=== PATIENT | female | born 1960 | race Caucasian/White ===

== ENCOUNTER 2016-12-06 13:42 | Inpatient (IN) ==
[2016-12-06] MEDS ORDERED: *HR* HYDROmorphone (PF) 1 MG/ML SYRINGE IM ONE (15:06)
[2016-12-06] MEDS ORDERED: Ondansetron ODT 4 MG TAB.RAPDIS SL ONE (15:06)
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
[2016-12-06] MEDS ORDERED: *HR* Heparin 5,000 UNIT/ML VIAL IVP ONE ×2 (15:34→15:51)
[2016-12-06] MEDS ORDERED: *HR* Heparin 5,000 UNIT/ML VIAL IVP PRN ×2 (15:34)
[2016-12-06] MEDS ORDERED: Heparin 25,000 UNIT/500 ML D5W 25,000 UNIT/500 ML MLS IVC SCH (15:45)
[2016-12-06 15:55] LABS: Hematocrit 38.6 % (35.3-44.9); Hemoglobin 12.3 g/dL (11.5-15.4); Mean Corpuscular HGB Conc 31.9 g/dL (31.6-35.5); Mean Platelet Volume 10.3 fL (9.4-12.4); Platelet Count 406 K/mcL (140-400); Red Blood Count 4.24 M/mcL (3.82-4.97); Red Cell Distribution Width 14.4 % (11.5-14.5)
[2016-12-06 16:00] LABS: Prothrombin Time 10.7 Seconds (9.4-12.1)
[2016-12-06 16:02] LABS: Activated Partial Thrombo Time 26.8 Seconds (26.0-36.0)
[2016-12-06 16:07] LABS: BUN/Creatinine Ratio 21 (6-26); Blood Urea Nitrogen 18 mg/dL (7-20); Calcium 9.6 mg/dL (8.6-10.8); Carbon Dioxide 26 mEq/L (19-29); Chloride 105 mEq/L (98-109); Glucose 199 mg/dL (70-99); Osmolality,Calculated 291 (280-300); Potassium 4.6 mEq/L (3.5-4.5); Sodium 137 mEq/L (136-145); eGFR For African Americans > 60 (> 60); eGFR For Non-African Americans > 60 (> 60)
--- NOTE | 2016-12-06 16:33 | Event Note ---
Date of Encounter: 12/06/16 Time of Encounter: 15:45 Patient seen in ED. Daughter and friend at bedside with patient. Discussed plan for admission with medical management through the weekend and surgery Friday morning by Dr. Bonilla as scheduled. Dr. Bonilla aware of patient's admission. Brace applied for patient -bracing specialist to adjust fit. Ecchymosis noted to right upper extremity - tender to palpation. Patient neurovascularly intact. Will plan to follow after admission.
[2016-12-06] MEDS ORDERED: Naloxone 0.4 MG/ML INJ IVP PRN (16:44)
[2016-12-06] MEDS ORDERED: Acetaminophen 325 MG TABLET PO PRN (16:44)
[2016-12-06] MEDS ORDERED: Ondansetron 4 MG/2 ML VIAL IVP PRN ×2 (16:44→17:00)
--- NOTE | 2016-12-06 16:53 | Venous Imaging Report ---
UE Venous Duplex Patient Name:Leisa Hendrix Order Number:[id number] Procedure Date:12/06/2016 Date:1960Age:56 yrs Gender:Female Location:[facility] OP Room #: Occasional Babysitter:Raghav Goff Referring MD:Gilson Villegas MD kelp or seagrass gatherer:None Reading MD:Elio Anne MD , FACS Primary Indications:Arm swelling Secondary Indications: Risk Factors Yes/No Hx of DVT Yes Impressions: Right upper extremity: normal superficial and deep exam. Left upper extremity: normal contralateral exam. Recommendations: Critical findings reported to Dr. Villegas in person by Raghav Goff. Findings Venous Duplex Results: Right: The right ulnar vein was not well visualized. Prior Study: No prior study available for comparison. Upper Extremity Venous Duplex Side Vein Compress Spontaneous Flow Augment Right Jugular Normal Yes Phasic Yes Right Subclavian Normal Yes Phasic Yes Right Axillary Normal Yes Phasic Yes Right Brachial Normal Yes Phasic Yes Right Cephalic Normal Yes Phasic Yes Right Basilic Normal Yes Phasic Yes Right Radial Normal Yes Phasic Yes Right Ulnar Normal Yes Phasic Yes Left Subclavian Normal Yes Phasic Yes Updated by Elio Anne MD, FACS on 12/06/2016 4:49:46 PM Elio Anne MD electronically signed on 12/06/2016 4:50:09 PM with status of Final
[2016-12-06] MEDS: Heparin 25,000 UNIT/500 ML D5W 25,000 UNIT/500 ML MLS IVC SCH (17:35)
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
[2016-12-06] MEDS: *HR* Morphine 2 MG/ML SYRINGE IVP PRN ×2 (18:25→22:06)
[2016-12-06] MEDS: Nicotine 21 MG PATCH.TD24 TD SCH (18:57)
[2016-12-06] MEDS: *HR* Heparin 5,000 UNIT/ML VIAL IVP PRN (23:51)
[2016-12-06] MEDS: *HR* HYDROcodone/Acet 5/325 mg TABLET PO PRN (23:54)
[2016-12-07] MEDS: *HR* Morphine 2 MG/ML SYRINGE IVP PRN ×3 (01:56→10:12)
[2016-12-07] MEDS: *HR* HYDROcodone/Acet 5/325 mg TABLET PO PRN ×5 (04:32→20:24)
[2016-12-07 06:08] LABS: Basophils # 0.1 K/mcL (0.0-0.2); Eosinophils # 0.5 K/mcL (0.0-0.6); Eosinophils % 4.4 %; Hematocrit 33.5 % (35.3-44.9); Immature Granulocytes % 0.4 % (0-4); Lymphocytes # 3.6 K/mcL (0.6-4.6); Lymphocytes % 31.8 %; Mean Corpuscular HGB Conc 31.9 g/dL (31.6-35.5); Mean Corpuscular Volume 90.8 fL (83.0-100.0); Mean Platelet Volume 10.8 fL (9.4-12.4); Monocytes # 0.6 K/mcL (0.0-1.3); Monocytes % 5.5 %; Neutrophils # 6.4 K/mcL (1.6-8.9); Platelet Count 345 K/mcL (140-400); Red Blood Count 3.69 M/mcL (3.82-4.97); Red Cell Distribution Width 14.4 % (11.5-14.5); Segmented Neutrophils % 56.9 %
[2016-12-07 06:14] LABS: Hemoglobin 10.7 g/dL (11.5-15.4)
[2016-12-07 06:25] LABS: BUN/Creatinine Ratio 22 (6-26); Blood Urea Nitrogen 16 mg/dL (7-20); Calcium 9.1 mg/dL (8.6-10.8); Carbon Dioxide 25 mEq/L (19-29); Chloride 104 mEq/L (98-109); Glucose 184 mg/dL (70-99); Osmolality,Calculated 284 (280-300); Potassium 4.3 mEq/L (3.5-4.5); Sodium 134 mEq/L (136-145); eGFR For African Americans > 60 (> 60); eGFR For Non-African Americans > 60 (> 60)
[2016-12-07] MEDS: Nicotine 21 MG PATCH.TD24 TD SCH (08:35)
[2016-12-07] MEDS: Aspirin Enteric Coated 81 MG Tablet PO SCH (08:35)
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
[2016-12-07] MEDS: *HR* Heparin 5,000 UNIT/ML VIAL IVP PRN ×2 (13:07→20:23)
[2016-12-07] MEDS: *HR* HYDROmorphone (PF) 1 MG/ML SYRINGE IVP PRN ×3 (14:19→20:38)
[2016-12-07] MEDS: Heparin 25,000 UNIT/500 ML D5W 25,000 UNIT/500 ML MLS IVC SCH (16:20)
[2016-12-08] MEDS: *HR* HYDROmorphone (PF) 1 MG/ML SYRINGE IVP PRN ×8 (00:01→23:00)
[2016-12-08] MEDS: *HR* HYDROcodone/Acet 5/325 mg TABLET PO PRN ×6 (01:34→22:28)
[2016-12-08 02:41] LABS: Prothrombin Time 10.9 Seconds (9.4-12.1)
[2016-12-08 02:45] LABS: Activated Partial Thrombo Time 87.4 Seconds (26.0-36.0)
[2016-12-08 02:47] LABS: Basophils # 0.1 K/mcL (0.0-0.2); Basophils % 0.7 %; Eosinophils # 0.5 K/mcL (0.0-0.6); Eosinophils % 4.3 %; Hematocrit 34.3 % (35.3-44.9); Hemoglobin 10.8 g/dL (11.5-15.4); Immature Granulocytes % 0.4 % (0-4); Lymphocytes # 3.8 K/mcL (0.6-4.6); Lymphocytes % 35.3 %; Mean Corpuscular HGB Conc 31.5 g/dL (31.6-35.5); Mean Corpuscular Hemoglobin 28.3 pg (28.0-33.3); Mean Corpuscular Volume 89.8 fL (83.0-100.0); Mean Platelet Volume 10.5 fL (9.4-12.4); Monocytes # 0.6 K/mcL (0.0-1.3); Monocytes % 5.3 %; Neutrophils # 5.8 K/mcL (1.6-8.9); Platelet Count 362 K/mcL (140-400); Red Blood Count 3.82 M/mcL (3.82-4.97); Red Cell Distribution Width 13.9 % (11.5-14.5)
[2016-12-08 02:48] LABS: BUN/Creatinine Ratio 19 (6-26); Blood Urea Nitrogen 15 mg/dL (7-20); Calcium 9.2 mg/dL (8.6-10.8); Carbon Dioxide 27 mEq/L (19-29); Chloride 100 mEq/L (98-109); Glucose 230 mg/dL (70-99); Osmolality,Calculated 282 (280-300); Potassium 4.3 mEq/L (3.5-4.5); Sodium 132 mEq/L (136-145); eGFR For African Americans > 60 (> 60); eGFR For Non-African Americans > 60 (> 60)
[2016-12-08] MEDS: Nicotine 21 MG PATCH.TD24 TD SCH (09:45)
[2016-12-08] MEDS: Aspirin Enteric Coated 81 MG Tablet PO SCH (09:46)
[2016-12-08] MEDS: Heparin 25,000 UNIT/500 ML D5W 25,000 UNIT/500 ML MLS IVC SCH (12:13)
--- NOTE | 2016-12-08 12:55 | Internal Med Progress Note ---
<Conrado Jimenes - Last Filed: 12/08/16 12:53> Date of Encounter: 12/08/16 Time of Encounter: 11:30 - Assessment and plan (1) CHF (congestive heart failure) Current Visit: Yes Status: Acute Assessment and plan: History of CHF. Cardiology was consulted for preop clearance. Qualifiers: Congestive heart failure type: unspecified congestive heart failure type Congestive heart failure chronicity: chronic Qualified Code(s): I50.9 - Heart failure, unspecified (2) Humerus fracture Current Visit: Yes Status: Acute Assessment and plan: Ortho Evra was aware of patient's condition. -Patient is scheduled to have surgery on Friday. -Patient states that this morning, she had pain in her arm has improved since she was given Dilaudid. -R arm swelling is present. Qualifiers: Encounter type: subsequent encounter Humerus Location: shaft Fracture type: closed Fracture morphology: unspecified fracture morphology Laterality : right Fracture healing: with routine healing Qualified Code(s): S42.301D - Unspecified fracture of shaft of humerus, right arm, subsequent encounter for fracture with routine healing (3) Tobacco abuse Current Visit: Yes Status: Acute Assessment and plan: Patient has been placed on a nicotine patch. (4) DVT (deep venous thrombosis) Current Visit: Yes Status: Acute Assessment and plan: Patient has been placed on heparin drip. Qualifiers: DVT location: lower extremity Affected thrombotic vein of extremity: unspecified vein of extremity Chronicity: chronic Laterality: left Qualified Code(s): I82.502 - Chronic embolism and thrombosis of unspecified deep veins of left lower extremity - Subjective Interval history: She was seen and examined at bedside this morning. Patient states that the only problem that she is having this morning is some pain in her arm. Pain has improved since administration of Dilaudid. Patient denies having any shortness of breath, chest pain, or leg pain. Arm swelling is appreciated on physical exam. Patient has no other complaints at this time. - Constitutional Vitals: Temp Pulse Resp BP Pulse Ox 98.1 F 91 14 136/79 95 12/08/16 12:15 12/08/16 12:15 12/08/16 12:15 12/08/16 12:15 12/08/16 12:15 General appearance: Present: A&O X 3, pleasant, no acute distress, answers questions appropriately - Head Head exam: Present: atraumatic, normocephalic - Neck Neck exam general surgery: Present: supple, trachea midline. Absent: lymphadenopathy - Respiratory Respiratory exam: Present: CTAB. Absent: accessory muscle use, rales, rhonchi, wheezes - Cardiovascular Cardiovascular exam: Present: RRR, +S1, +S2. Absent: diastolic murmur, gallop, rubs, systolic murmur - GI/Abdominal GI/Abdominal exam: Absent: distended - Extremities Exam Extremities exam: Present: warm, radial pulses palpable and symetrical. Absent : calf tenderness, cyanotic, pedal edema - Expanded Upper Extremities Exam Upper Arm exam: Present: deformity (Fracture of right humerus. Swelling present. ), swelling - Skin Skin exam: Present: dry, intact Internal Medicine: Result - Labs CBC & Chem 7: 12/08/16 02:29 12/08/16 02:29 Labs: Short CBC 12/08/16 Range/Units 02:29 WBC 10.7 (4.3-11.1) K/mcL Hgb 10.8 L (11.5-15.4) g/dL Hct 34.3 L (35.3-44.9) % Plt Count 362 (140-400) K/mcL Neutrophils # 5.8 (1.6-8.9) K/mcL BMP 12/08/16 02:29 Sodium 132 L Potassium 4.3 Chloride 100 Carbon Dioxide 27 BUN 15 Creatinine 0.80 Glucose 230 H Calcium 9.2 - ABG Interpretation ABG results: PT/INR, D-dimer PT 10.9 Seconds (9.4-12.1) 12/08/16 02:29 Consult Discharge Plan - Plan Referrals: NO,PCP [Primary Care Provider] - <Bonifacio Caba H - Last Filed: 12/08/16 13:00> Date of Encounter: 12/08/16 - Constitutional Vitals: Temp Pulse Resp BP Pulse Ox 98.1 F 91 14 136/79 95 12/08/16 12:15 12/08/16 12:15 12/08/16 12:15 12/08/16 12:15 12/08/16 12:15 Internal Medicine: Result - Labs CBC & Chem 7: 12/08/16 02:29 12/08/16 02:29 Labs: Short CBC 12/08/16 Range/Units 02:29 WBC 10.7 (4.3-11.1) K/mcL Hgb 10.8 L (11.5-15.4) g/dL Hct 34.3 L (35.3-44.9) % Plt Count 362 (140-400) K/mcL Neutrophils # 5.8 (1.6-8.9) K/mcL BMP 12/08/16 02:29 Sodium 132 L Potassium 4.3 Chloride 100 Carbon Dioxide 27 BUN 15 Creatinine 0.80 Glucose 230 H Calcium 9.2 - ABG Interpretation ABG results: PT/INR, D-dimer PT 10.9 Seconds (9.4-12.1) 12/08/16 02:29 - Attending Attestation Continue Dilaudid. Surgery in the morning I examined this patient and my medical decision-making was reviewed with the Resident Physician. I agree with the documented findings, disposition and treatment plan as described except to the extent set forth below.
--- NOTE | 2016-12-08 13:11 | Event Note ---
Date of Encounter: 12/08/16 Time of Encounter: 13:07 - Cardiology Event Note Cardiology has been consulted for pre-op clearance. Patient was seen and examined by in outpatient setting, note placed on chart. Cardiology has requested records from primary cardiologists office in regarding to recent stress test and recent echocardiogram. No records available fo review. Echo completed here 12/07/16 with LVEF 45-50%, hypokinesis of inferior wall, mild concentric left ventricular hypertrophy, mild diastolic dysfunction, no significant valvular dysfunction, apical inferior, mid inferior, and basal inferior person hypokinetic. All other person with normal motion. SUrgery is planned for tomorrow. DO suspect would be cleared tomorrow, however recommend surgery be scheduled for afternoon to allow for cardiology to call primary cardiologists office to review recent stress test. Cardiology will see patient tomorrow.
[2016-12-09] MEDS: *HR* HYDROmorphone (PF) 1 MG/ML SYRINGE IVP PRN ×10 (02:04→21:23)
[2016-12-09] MEDS: *HR* HYDROcodone/Acet 5/325 mg TABLET PO PRN ×4 (02:26→21:30)
[2016-12-09 05:18] LABS: Basophils # 0.1 K/mcL (0.0-0.2); Basophils % 0.7 %; Eosinophils # 0.5 K/mcL (0.0-0.6); Eosinophils % 4.7 %; Hematocrit 35.4 % (35.3-44.9); Immature Granulocytes % 0.8 % (0-4); Immature Platelets 5.6 % (1.1-6.1); Lymphocytes # 3.2 K/mcL (0.6-4.6); Lymphocytes % 31.9 %; Mean Corpuscular HGB Conc 31.1 g/dL (31.6-35.5); Mean Corpuscular Hemoglobin 28.4 pg (28.0-33.3); Mean Corpuscular Volume 91.5 fL (83.0-100.0); Mean Platelet Volume 10.6 fL (9.4-12.4); Monocytes # 0.6 K/mcL (0.0-1.3); Monocytes % 6.3 %; Neutrophils # 5.5 K/mcL (1.6-8.9); Platelet Count 351 K/mcL (140-400); Red Blood Count 3.87 M/mcL (3.82-4.97); Red Cell Distribution Width 13.9 % (11.5-14.5); Segmented Neutrophils % 55.6 %
[2016-12-09 05:24] LABS: Prothrombin Time 11.2 Seconds (9.4-12.1)
[2016-12-09 05:30] LABS: BUN/Creatinine Ratio 18 (6-26); Blood Urea Nitrogen 14 mg/dL (7-20); Calcium 9.6 mg/dL (8.6-10.8); Carbon Dioxide 25 mEq/L (19-29); Chloride 99 mEq/L (98-109); Glucose 223 mg/dL (70-99); Osmolality,Calculated 281 (280-300); Potassium 4.4 mEq/L (3.5-4.5); Sodium 132 mEq/L (136-145); eGFR For African Americans > 60 (> 60); eGFR For Non-African Americans > 60 (> 60)
[2016-12-09] MEDS: Nicotine 21 MG PATCH.TD24 TD SCH (08:44)
[2016-12-09] MEDS: Aspirin Enteric Coated 81 MG Tablet PO SCH (08:44)
--- NOTE | 2016-12-09 10:10 | Internal Med Progress Note ---
<Conrado Jimenes - Last Filed: 12/09/16 10:23> Date of Encounter: 12/09/16 Time of Encounter: 10:00 - Assessment and plan (1) CHF (congestive heart failure) Current Visit: Yes Status: Acute Assessment and plan: History of CHF. -Cardiology was consulted for preop clearance. -Cardiology will review patient's records. -Patient is scheduled for surgery this morning. Qualifiers: Congestive heart failure type: unspecified congestive heart failure type Congestive heart failure chronicity: chronic Qualified Code(s): I50.9 - Heart failure, unspecified (2) Humerus fracture Current Visit: Yes Status: Acute Assessment and plan: Patient is scheduled to have surgery today. -Patient states that this morning, she had pain in her arm has improved since she was given Dilaudid. -R arm swelling is present. -Cardiology will review patient's condition. Qualifiers: Encounter type: subsequent encounter Humerus Location: shaft Fracture type: closed Fracture morphology: unspecified fracture morphology Laterality : right Fracture healing: with routine healing Qualified Code(s): S42.301D - Unspecified fracture of shaft of humerus, right arm, subsequent encounter for fracture with routine healing (3) Tobacco abuse Current Visit: Yes Status: Acute Assessment and plan: Patient has been placed on a nicotine patch. (4) DVT (deep venous thrombosis) Current Visit: Yes Status: Acute Assessment and plan: Patient has been placed on heparin drip. Qualifiers: DVT location: lower extremity Affected thrombotic vein of extremity: unspecified vein of extremity Chronicity: chronic Laterality: left Qualified Code(s): I82.502 - Chronic embolism and thrombosis of unspecified deep veins of left lower extremity - Subjective Interval history: She was seen and examined at bedside this morning. Patient states that the only problem that she is having this morning is some pain in her arm. Pain has improved since administration of Dilaudid. She is scheduled for surgery this morning, pending clearance from cardiology. Patient denies having any shortness of breath, chest pain, or leg pain. Arm swelling is appreciated on physical exam. Patient has no other complaints at this time. - Constitutional Vitals: Temp Pulse Resp BP Pulse Ox 97.8 F 75 18 142/83 97 12/09/16 06:53 12/09/16 06:53 12/09/16 06:53 12/09/16 06:53 12/09/16 06:53 General appearance: Present: A&O X 3, pleasant, no acute distress, answers questions appropriately - Head Head exam: Present: atraumatic, normocephalic - Neck Neck exam general surgery: Present: supple, trachea midline. Absent: lymphadenopathy - Respiratory Respiratory exam: Present: CTAB. Absent: accessory muscle use, rales, rhonchi, wheezes - Cardiovascular Cardiovascular exam: Present: RRR, +S1, +S2. Absent: diastolic murmur, gallop, rubs, systolic murmur - Extremities Exam Extremities exam: Present: warm, radial pulses palpable and symetrical. Absent : calf tenderness, cyanotic, pedal edema - Expanded Upper Extremities Exam Upper Arm exam: Present: swelling (The patient still has swelling in her right arm. Pain has improved since administration of Dilaudid.) - Skin Skin exam: Present: dry, intact Internal Medicine: Result - Labs CBC & Chem 7: 12/09/16 04:26 12/09/16 04:26 Labs: Short CBC 12/09/16 Range/Units 04:26 WBC 9.9 (4.3-11.1) K/mcL Hgb 11.0 L (11.5-15.4) g/dL Hct 35.4 (35.3-44.9) % Plt Count 351 (140-400) K/mcL Neutrophils # 5.5 (1.6-8.9) K/mcL BMP 12/09/16 04:26 Sodium 132 L Potassium 4.4 Chloride 99 Carbon Dioxide 25 BUN 14 Creatinine 0.78 Glucose 223 H Calcium 9.6 - ABG Interpretation ABG results: PT/INR, D-dimer PT 11.2 Seconds (9.4-12.1) 12/09/16 04:26 Consult Discharge Plan - Plan Referrals: NO,PCP [Primary Care Provider] - <Bonifacio Caba H - Last Filed: 12/09/16 10:27> Date of Encounter: 12/09/16 - Constitutional Vitals: Temp Pulse Resp BP Pulse Ox 97.8 F 75 18 142/83 97 12/09/16 06:53 12/09/16 06:53 12/09/16 06:53 12/09/16 06:53 12/09/16 06:53 Internal Medicine: Result - Labs CBC & Chem 7: 12/09/16 04:26 12/09/16 04:26 Labs: Short CBC 12/09/16 Range/Units 04:26 WBC 9.9 (4.3-11.1) K/mcL Hgb 11.0 L (11.5-15.4) g/dL Hct 35.4 (35.3-44.9) % Plt Count 351 (140-400) K/mcL Neutrophils # 5.5 (1.6-8.9) K/mcL BMP 12/09/16 04:26 Sodium 132 L Potassium 4.4 Chloride 99 Carbon Dioxide 25 BUN 14 Creatinine 0.78 Glucose 223 H Calcium 9.6 - ABG Interpretation ABG results: PT/INR, D-dimer PT 11.2 Seconds (9.4-12.1) 12/09/16 04:26 - Attending Attestation Awaiting records from crisis specialist to obtain clearance for surgery I examined this patient and my medical decision-making was reviewed with the Resident Physician. I agree with the documented findings, disposition and treatment plan as described except to the extent set forth below.
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
[2016-12-09] MEDS: Metoprolol XL (24 HR) Succ 25 MG TAB.ER.24H PO SCH (12:00)
[2016-12-09] MEDS: *HR* Heparin 5,000 UNIT/ML VIAL IVP PRN ×2 (12:01→22:31)
--- NOTE | 2016-12-09 17:30 | Anesthesia Evaluation PreOp ---
Date of Encounter: 12/09/16 Time of Encounter: 17:27 - Past History Planned Operation: ORIF R-Humerus Cardiac History: ND (known RCA STEMI 2014), HTN (maintained on Norvasc, Lisinopril, Metoprolol), Hyperlipidemia (maintained), Other ([facility] 07/2014 - mild CAD, LVEF 40%. ECHO 12/07/2016 - LVEF 45-50% HYpokinesis of Inf Wall, BAsal & apical inferior person. LVH. NO Significant Valvuluar dysfx Nuclear Stress 2016 - Lg Inf. & Apical ND. 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 Chronic Pain maintained on Gabapentin, Cyclobenzaprine, Hydrocodone) Other Medical History: Bleeding (Hx of DVT maintained on Eliquis but "ran out" several months ago and refused Lovenox injections. Admitted 12/07/2016 for anticoagulation.), GERD (maintained on Ranitidine) Anesthesia History: No Prior Anesthetic Complications, Past Anesthesia Alcohol Use: none Drug use: none Medications and Allergies Aspirin [Lo-Dose Aspirin EC] 81 mg PO DAILY 12/01/16 [History] Oxycodone HCl/Acetaminophen [Percocet 7.5-325 mg Tablet] 1 each PO Q6H PRN 12/06 [History] OxyCODONE Immed Rel [Roxicodone 5 MG] 5 - 10 mg PO Q6HR PRN #40 tablet 12/08/16 [Rx] Allergies No Known Allergies Allergy (Verified 12/01/16 06:06) - Meds/Allergy Pre-op Review Medications Reviewed: Yes Allergies Reviewed: Yes Beta Blockers on Current Med List: Yes (Metoprolol) If Beta Blockers taken, Date/Time (Last Dose taken): 12/09/16 @ 1200 Anesthesia Results - Labs 12/09/16 04:26 12/09/16 04:26 Laboratory Tests 12/09/16 12/09/16 12/09/16 04:26 04:26 04:26 WBC 9.9 Hgb 11.0 L Hct 35.4 Plt Count 351 PT 11.2 INR 1.0 APTT Sodium 132 L Potassium 4.4 Chloride 99 Carbon Dioxide 25 BUN 14 Creatinine 0.78 Est GFR (Non-Af Amer) > 60 Glucose 223 H 12/09/16 08:43 WBC Hgb Hct Plt Count PT INR APTT 33.1 Sodium Potassium Chloride Carbon Dioxide BUN Creatinine Est GFR (Non-Af Amer) Glucose - Imaging EKG: image reviewed Anesthesia Exam O2 Sat Weight 59.058 kg O2 Sat by Pulse Oximetry 97 O2 Sat by Pulse Oximetry 96 O2 Sat by Pulse Oximetry 94 O2 Sat by Pulse Oximetry 97 O2 Sat by Pulse Oximetry 97 O2 Sat by Pulse Oximetry 95 O2 Sat by Pulse Oximetry 93 O2 Sat by Pulse Oximetry 96 Vital Signs Temp Pulse Resp BP Pulse Ox 97.8 F 98 18 107/75 97 12/06/16 13:44 12/06/16 13:44 12/06/16 13:44 12/06/16 13:44 12/06/16 13:44 Height: 5'4" Weight: 130# BMI = 22.3 NPO (# of Hours): MNoc - HEENT Pupil (Motor): Pupils equal, EOMI Mallampati: II Teeth: Edentulous Oral Opening: Greater than 3 - STOCKHOLDER LOC: Oriented STOCKHOLDER Motor: Normal LUE, Normal RLE, Normal LLE, Normal Face, Deficit RUE STOCKHOLDER Sensory: Normal: LUE, RLE, LLE, Face, Deficit: RUE - Cardiac Rhythm: Regular Murmur: None - Pulmonary Breath Sounds: bilateral Clear Respiratory Effort: Symmetrical Anesthesia Assess/Plan ASA Score: 3 (COPD, Smoker, CAD, HTN, Chol, Chronic Pain) Modified Sergio Scale for Level of Consciousness: Cooperative, oriented, and tranquil Anesthetic Plan: General Monitoring Plan: Standard Monitors Recovery Plan: PACU Anes Supervising Prov Stmt: Pt seen/evaluated, R&B Discussed, questions answered and consent obtained. Roxana Hernandez MD
[2016-12-09] MEDS ORDERED: Lidocaine -MPF 2% 2 ML VIAL ONE ×3 (17:31→17:38)
[2016-12-09] MEDS ORDERED: *HR* Propofol 200 MG/20 ML VIAL IVP ONE (17:36)
[2016-12-09] MEDS ORDERED: Ondansetron 4 MG/2 ML VIAL ONE ×2 (17:38→18:39)
[2016-12-09] MEDS ORDERED: Dexamethasone 4 MG/ML VIAL ONE ×2 (17:38→18:39)
[2016-12-09] MEDS ORDERED: Lidocaine -MPF 4% 5 ML AMPUL ONE (17:49)
[2016-12-09 18:09] LABS: Heparin anti-factor XA UFH 1.01 IU/mL (0.30-0.70)
[2016-12-09] MEDS ORDERED: *HR* FentaNYL (PF) 100 MCG/2 ML VIAL ONE (18:25)
[2016-12-09] MEDS ORDERED: Acetaminophen IV 1,000 MG/100 ML INFUS..BTL ONE (18:40)
[2016-12-09] MEDS ORDERED: EPHEDrine 50 MG/ML VIAL ONE (18:41)
[2016-12-09] MEDS ORDERED: *HR* HYDROmorphone 2 MG/ML SYRINGE ONE (18:44)
--- NOTE | 2016-12-09 19:20 | Orthopedic Operative Note ---
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 After general anesthesia was administered the operative arm was prepped and draped in the sterile surgical fashion The patient received IV antibiotics prior to skin incision. A standard extended deltopectoral approach was made to the humerus, the incision is made to the skin and subcutaneous tissue. Hemostasis was obtained with Bovie cautery. Using careful blunt dissection the deltopectoral interval was developed, exposing the fracture site. The patient had a long oblique fracture was reduced and held in place with bone holding forceps. 2 super cables were passed under direct vision directly on the bone and secured together preliminary fixation. Using fluoroscopic assistance a Synthes 8 hole proximal humeral locking plate was approximated to the anterior lateral surface was fixed above and below the fracture in compression. With 2, 3.5 cortical screw. It was fixed proximally with 3 3.5 locking screws. Fixation was completed with distal fixation with 3 3.5 locking screws. Position of the hardware as well as fracture reduction found to be acceptable on fluoroscopic exam and direct evaluation. The wound was irrigated the deltopectoral closed with a running #1 PDS suture case tissues irrigated and closed deep with 0 PDS suture superficially with 0 PDS suture was closed with skin jacqui patient was sterile dressing and brace. The patient was extubated, and then transferred to the recovery room in stable condition. Anesthesia: GETA Surgeon: Adalberto Bonilla Condition: stable Disposition: PACU
[2016-12-09] MEDS ORDERED: *HR* HYDROmorphone (PF) 1 MG/ML SYRINGE ONE ×2 (19:30→19:44)
[2016-12-09] MEDS ORDERED: *HR* Promethazine 25 MG/ML VIAL IVP PRN (19:31)
--- NOTE | 2016-12-09 20:35 | Anesthesia Evaluation Post Op ---
Date of Encounter: 12/09/16 Time of Encounter: 20:34 - Vital Signs Vital Signs: Vital Signs/O2 Sat, Most Current Temp Pulse Resp BP Pulse Ox 98.3 F 72 12 122/81 95 12/09/16 20:17 12/09/16 20:17 12/09/16 20:17 12/09/16 20:17 12/09/16 20:17 - Lungs Lungs: Clear Ascult./Percussion - Airway Airway: Non-obstructed - Cardiovascular Regular Rate - Mental Status Mental Status: Alert & Oriented, Answers Appropriately - Pain Pain Scale: 8 (has chronic 7-8/10 pain) Pain Scale used: Numeric (1 - 10) - Nausea Vomiting Nausea Vomiting: Not Present - Hydration Hydration: Tolerates oral liquids, Has not voided - Discharge PostOp Status: Transfer Patient to floor
[2016-12-10] MEDS: *HR* HYDROmorphone (PF) 1 MG/ML SYRINGE IVP PRN ×8 (00:05→23:11)
[2016-12-10] MEDS: *HR* HYDROcodone/Acet 5/325 mg TABLET PO PRN ×5 (01:35→21:01)
[2016-12-10] MEDS: Heparin 25,000 UNIT/500 ML D5W 25,000 UNIT/500 ML MLS IVC SCH (03:08)
[2016-12-10 06:10] LABS: Basophils % 0.3 %; Eosinophils % 0.1 %; Hematocrit 34.5 % (35.3-44.9); Immature Granulocytes % 0.4 % (0-4); Lymphocytes % 7.9 %; Mean Corpuscular HGB Conc 31.9 g/dL (31.6-35.5); Mean Corpuscular Hemoglobin 29.2 pg (28.0-33.3); Mean Corpuscular Volume 91.5 fL (83.0-100.0); Mean Platelet Volume 11.8 fL (9.4-12.4); Monocytes # 0.5 K/mcL (0.0-1.3); Monocytes % 3.9 %; Neutrophils # 10.5 K/mcL (1.6-8.9); Platelet Count 352 K/mcL (140-400); Red Blood Count 3.77 M/mcL (3.82-4.97); Segmented Neutrophils % 87.4 %
[2016-12-10 06:13] LABS: Prothrombin Time 11.1 Seconds (9.4-12.1)
[2016-12-10 06:25] LABS: BUN/Creatinine Ratio 19 (6-26); Blood Urea Nitrogen 21 mg/dL (7-20); Carbon Dioxide 24 mEq/L (19-29); Chloride 96 mEq/L (98-109); Osmolality,Calculated 297 (280-300); Potassium 5.3 mEq/L (3.5-4.5); Sodium 130 mEq/L (136-145); eGFR For African Americans > 60 (> 60); eGFR For Non-African Americans 51 (> 60)
[2016-12-10 06:27] LABS: Glucose 526 mg/dL (70-99)
--- NOTE | 2016-12-10 06:44 | Orthopedics Progress Note ---
Date of Encounter: 12/10/16 Time of Encounter: 06:42 Subjective Interval history: Patient was seen this morning doing well without complaints. Afebrile vital signs stable. Operative extremity: Neurovascularly intact Dressing clean dry and intact Calves nontender Assessment and plan: Continue with postoperative care Stable for discharge Objective Vital signs: Vital Signs Temp Pulse Resp BP Pulse Ox 12/10/16 04:03 98.4 F 79 16 149/66 96 12/09/16 22:21 97.6 F 91 16 118/72 92 12/09/16 22:13 97.8 F 83 16 122/76 89 12/09/16 21:51 84 16 121/77 94 12/09/16 21:36 97.6 F 73 16 106/73 93 12/09/16 21:21 78 16 121/85 96 12/09/16 20:54 97.8 F 80 17 128/81 96 12/09/16 20:51 97.8 F 80 16 128/81 92 12/09/16 20:17 98.3 F 72 12 122/81 95 12/09/16 20:07 98.3 F 76 12 124/90 95 12/09/16 19:57 98.3 F 83 18 120/82 97 12/09/16 19:47 73 18 127/77 96 12/09/16 19:37 75 12 130/82 93 12/09/16 19:27 97.4 F L 85 16 142/81 96 12/09/16 18:12 87 16 118/72 97 12/09/16 17:43 74 18 109/74 97 12/09/16 17:25 73 16 123/76 96 12/09/16 15:43 98.4 F 71 16 112/74 94 12/09/16 10:41 97.6 F 74 18 108/72 97 12/09/16 06:53 97.8 F 75 18 142/83 97 Intake and Output 12/09/16 12/09/16 12/10/16 15:59 23:59 07:59 Intake Total 240 / 240 473 / 473 347 / 347 Output Total 100 / 100 Balance 240 / 240 373 / 373 347 / 347 Intake: IV Fluids 120 / 120 173 / 173 97 / 97 Heparin 25,000 UNIT/500 120 / 120 173 / 173 97 / 97 ML D5W 25,000 unit In 500 ml @ 14 UNIT/KG/HR 16. 384 mls/hr IVC .Q24H DICK Rx#:[id number] Oral 120 / 120 300 / 300 250 / 250 Output: Estimated Blood Loss 100 / 100 Other: Meal Lunch HS SNACK-CRACKERS,CEREAL BAR Percent of Meal Consumed 0% Weight 59.058 kg 59.7 kg Patient Weight 12/10/16 23:59 Weight 59.7 kg - Labs CBC & BMP: 12/10/16 05:02 12/10/16 05:02 Labs: Abnormal lab results WBC 12.0 K/mcL (4.3-11.1) H 12/10/16 05:02 RBC 3.77 M/mcL (3.82-4.97) L 12/10/16 05:02 Hgb 11.0 g/dL (11.5-15.4) L 12/10/16 05:02 Hct 34.5 % (35.3-44.9) L 12/10/16 05:02 Neutrophils # 10.5 K/mcL (1.6-8.9) H 12/10/16 05:02 Heparin Anti-Xa, Unfract 1.01 IU/mL (0.30-0.70) H* 12/09/16 17:02 Sodium 130 mEq/L (136-145) L 12/10/16 05:02 Potassium 5.3 mEq/L (3.5-4.5) H 12/10/16 05:02 Chloride 96 mEq/L (98-109) L 12/10/16 05:02 BUN 21 mg/dL (7-20) H 12/10/16 05:02 Est GFR (Non-Af Amer) 51 (> 60) L 12/10/16 05:02 Glucose 526 mg/dL (70-99) H* 12/10/16 05:02 - VTE Documentation of Mechanical Device: Venous foot pump, device Consult Discharge Plan - Plan Referrals: NO,PCP [Primary Care Provider] -
[2016-12-10] MEDS ORDERED: Insulin Human Regular 8 UNIT in 0.9 % Sodium Chloride 10 ML IV ONE (06:45)
[2016-12-10] MEDS ORDERED: *HR* Dextrose 50 % in Water (Syg) 50 ML SYRINGE IVP PRN (06:46)
[2016-12-10] MEDS ORDERED: D5% in Water 1,000 ML IVC PRN (06:46)
[2016-12-10] MEDS ORDERED: Dextrose Gel 15 GM PO PRN ×2 (06:46)
[2016-12-10 07:11] LABS: Hemoglobin A1C 8.7 %
[2016-12-10] MEDS: Insulin LISPRO 300 UNITS/3 ML VIAL SQ SCH ×3 (08:00→17:22)
[2016-12-10] MEDS: Nicotine 21 MG PATCH.TD24 TD SCH (08:34)
[2016-12-10] MEDS: Metoprolol XL (24 HR) Succ 25 MG TAB.ER.24H PO SCH (08:34)
[2016-12-10] MEDS: Aspirin Enteric Coated 81 MG Tablet PO SCH (08:34)
--- NOTE | 2016-12-10 14:56 | Internal Med Progress Note ---
<Conrado Jimenes - Last Filed: 12/10/16 14:53> Date of Encounter: 12/10/16 Time of Encounter: 11:15 - Assessment and plan (1) Humerus fracture Current Visit: Yes Status: Acute Assessment and plan: Patient had surgery today. -She denies complications. -Says sling is uncomfortable. -Continue pain control. Qualifiers: Encounter type: subsequent encounter Humerus Location: shaft Fracture type: closed Fracture morphology: unspecified fracture morphology Laterality : right Fracture healing: with routine healing Qualified Code(s): S42.301D - Unspecified fracture of shaft of humerus, right arm, subsequent encounter for fracture with routine healing (2) Tobacco abuse Current Visit: Yes Status: Acute Assessment and plan: Patient has been placed on a nicotine patch. (3) DVT (deep venous thrombosis) Current Visit: Yes Status: Acute Assessment and plan: Patient has been placed on heparin drip. -Will resume Eliquis pending approval from ortho. 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 Qualifiers: Congestive heart failure type: unspecified congestive heart failure type Congestive heart failure chronicity: chronic Qualified Code(s): I50.9 - Heart failure, unspecified (5) Hyperglycemia Current Visit: Yes Status: Acute Assessment and plan: Patient had elevated blood sugar. -Glucose this morning was 526. -Never diagnosed as diabetic. -Follow up with PCP. - Subjective Interval history: She was seen and examined at bedside this morning. Patient states that the only problem that she is having this morning is some pain in her arm. Her surgery went well. She denies any complications, but does say that her arm sling is uncomfortable. Patient denies having any shortness of breath, chest pain, or leg pain. Arm swelling is appreciated on physical exam. Patient has no other complaints at this time. - Constitutional Vitals: Temp Pulse Resp BP Pulse Ox 97.9 F 82 17 136/80 95 12/10/16 11:14 12/10/16 11:14 12/10/16 11:14 12/10/16 11:14 12/10/16 11:14 General appearance: Present: A&O X 3, pleasant, no acute distress, answers questions appropriately - Head Head exam: Present: atraumatic, normocephalic - Neck Neck exam general surgery: Present: supple, trachea midline. Absent: lymphadenopathy - Respiratory Respiratory exam: Present: CTAB. Absent: accessory muscle use, rales, rhonchi, wheezes - Cardiovascular Cardiovascular exam: Present: RRR, +S1, +S2. Absent: diastolic murmur, gallop, rubs, systolic murmur - Skin Skin exam: Present: dry, intact Internal Medicine: Result - Labs CBC & Chem 7: 12/10/16 05:02 12/10/16 08:55 Labs: Short CBC 12/10/16 Range/Units 05:02 WBC 12.0 H (4.3-11.1) K/mcL Hgb 11.0 L (11.5-15.4) g/dL Hct 34.5 L (35.3-44.9) % Plt Count 352 (140-400) K/mcL Neutrophils # 10.5 H (1.6-8.9) K/mcL BMP 12/10/16 12/10/16 05:02 08:55 Sodium 130 L Potassium 5.3 H Chloride 96 L Carbon Dioxide 24 BUN 21 H Creatinine 1.11 Glucose 526 H* 413 H Calcium 10.0 - ABG Interpretation ABG results: PT/INR, D-dimer PT 11.1 Seconds (9.4-12.1) 12/10/16 05:02 - Impressions Impressions Fluoroscopy 12/09/16 18:35 IMPRESSION: Intraprocedural fluoroscopic spot images as above. See separate procedure report for more information. D/ / 12/09/2016 19:51:24 León Jamison MD / ladi Interpreting Provider: León Jamison MD Humerus X-Ray 12/09/16 18:35 IMPRESSION: Intraprocedural fluoroscopic spot images as above. See separate procedure report for more information. D/ / 12/09/2016 19:51:24 León Jamison MD / ladi Interpreting Provider: León Jamison MD - VTE Documentation of Mechanical Device: Venous foot pump, device Consult Discharge Plan - Plan Referrals: NO,PCP [Primary Care Provider] - <Rashaad Lewis - Last Filed: 12/10/16 18:41> Date of Encounter: 12/10/16 - Assessment and plan (1) Femoral popliteal artery thrombus Current Visit: Yes Status: Resolved Assessment and plan: Prior hx of arterial thrombus. Was to remain on anticoagulation. On IV heparin. Start PO med tomorrow. (2) Tobacco abuse Current Visit: Yes Status: Chronic (3) Diabetes mellitus Current Visit: Yes Status: Chronic Qualifiers: Diabetes mellitus type: type 2 Diabetes mellitus complication status: with circulatory complication Diabetes mellitus complication detail: with peripheral angiopathy without gangrene Diabetes mellitus service person insulin use : without senior care use Qualified Code(s): E11.51 - Type 2 diabetes mellitus with diabetic peripheral angiopathy without gangrene (4) CAD (coronary artery disease) Current Visit: Yes Status: Chronic Qualifiers: Coronary Disease-Associated Artery/Lesion type: [place] artery [place] vs. transplanted heart: [place] heart Associated angina: without angina Qualified Code(s): I25.10 - Atherosclerotic heart disease of [place] coronary artery without angina pectoris (5) Humerus fracture Current Visit: Yes Status: Acute Qualifiers: Encounter type: subsequent encounter Humerus Location: shaft Fracture type: closed Fracture morphology: unspecified fracture morphology Laterality : right Fracture healing: with routine healing Qualified Code(s): S42.301D - Unspecified fracture of shaft of humerus, right arm, subsequent encounter for fracture with routine healing - Constitutional Vitals: Temp Pulse Resp BP Pulse Ox 98.4 F 79 19 127/76 96 12/10/16 16:09 12/10/16 16:09 12/10/16 16:09 12/10/16 16:09 12/10/16 16:09 Internal Medicine: Result - Labs CBC & Chem 7: 12/10/16 05:02 12/10/16 08:55 Labs: Short CBC 12/10/16 Range/Units 05:02 WBC 12.0 H (4.3-11.1) K/mcL Hgb 11.0 L (11.5-15.4) g/dL Hct 34.5 L (35.3-44.9) % Plt Count 352 (140-400) K/mcL Neutrophils # 10.5 H (1.6-8.9) K/mcL BMP 12/10/16 12/10/16 05:02 08:55 Sodium 130 L Potassium 5.3 H Chloride 96 L Carbon Dioxide 24 BUN 21 H Creatinine 1.11 Glucose 526 H* 413 H Calcium 10.0 - ABG Interpretation ABG results: PT/INR, D-dimer PT 11.1 Seconds (9.4-12.1) 12/10/16 05:02 - Impressions Impressions Fluoroscopy 12/09/16 18:35 IMPRESSION: Intraprocedural fluoroscopic spot images as above. See separate procedure report for more information. D/ / 12/09/2016 19:51:24 León Jamison MD / ladi Interpreting Provider: León Jamison MD Humerus X-Ray 12/09/16 18:35 IMPRESSION: Intraprocedural fluoroscopic spot images as above. See separate procedure report for more information. D/ / 12/09/2016 19:51:24 León Jamison MD / ladi Interpreting Provider: León Jamison MD - Attending Attestation I examined this patient and my medical decision-making was reviewed with the Resident Physician on 12/10/16. I agree with the documented findings, disposition and treatment plan as described except to the extent set forth below. Ms. Hendrix is currently admitted for acute humeral fracture and anticoagulation due to history of arterial thrombus. She is moderate to high risk due to potential for worsening vascular complications. Ms. Hendrix is complaining of pain in arm. Relates history of thrombus in R leg and "almost lost leg." Says her Eliquis had 11 refills but she didn't refill it due to cost. Concerned about her meds. Exam Alert. comfortable Mucus membranes moist Heart reg No wheeze Abd soft I/P 1. Hx Arterial thrombus - on heparin. SW consult for med assist in AM 2. Fx R humerus - pain control 3. PAD Further diagnoses and plan as above.
[2016-12-10] MEDS ORDERED: Insulin LISPRO 300 UNITS/3 ML VIAL SQ SCH (21:00)
[2016-12-11] MEDS: *HR* HYDROcodone/Acet 5/325 mg TABLET PO PRN ×5 (01:08→19:49)
[2016-12-11] MEDS: Heparin 25,000 UNIT/500 ML D5W 25,000 UNIT/500 ML MLS IVC SCH ×2 (01:09→20:01)
[2016-12-11] MEDS: *HR* HYDROmorphone (PF) 1 MG/ML SYRINGE IVP PRN ×7 (03:03→21:20)
[2016-12-11] MEDS: *HR* Heparin 5,000 UNIT/ML VIAL IVP PRN (06:53)
[2016-12-11] MEDS: Metoprolol XL (24 HR) Succ 25 MG TAB.ER.24H PO SCH (08:00)
[2016-12-11] MEDS: Aspirin Enteric Coated 81 MG Tablet PO SCH (08:00)
[2016-12-11] MEDS: Insulin LISPRO 300 UNITS/3 ML VIAL SQ SCH ×3 (08:00→17:11)
[2016-12-11] MEDS: Nicotine 21 MG PATCH.TD24 TD SCH (08:00)
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
--- NOTE | 2016-12-11 19:31 | Internal Med Progress Note ---
Date of Encounter: 12/11/16 Time of Encounter: 08:30 - Assessment and plan (1) Femoral popliteal artery thrombus Current Visit: Yes Status: Resolved Assessment and plan: Prior hx of arterial thrombus. Will start PO Xarelto at discharge. (2) Tobacco abuse Current Visit: Yes Status: Chronic Assessment and plan: Patient has been placed on a nicotine patch. (3) Diabetes mellitus Current Visit: Yes Status: Chronic Assessment and plan: To start PO med at discharge. Currently on sliding scale. Qualifiers: Diabetes mellitus type: type 2 Diabetes mellitus complication status: with circulatory complication Diabetes mellitus complication detail: with peripheral angiopathy without gangrene Diabetes mellitus long-term insulin use : without terminal clerk use Qualified Code(s): E11.51 - Type 2 diabetes mellitus with diabetic peripheral angiopathy without gangrene (4) CAD (coronary artery disease) Current Visit: Yes Status: Chronic Assessment and plan: Chronic issues. Qualifiers: Coronary Disease-Associated Artery/Lesion type: [place] artery [place] vs. transplanted heart: [place] heart Associated angina: without angina Qualified Code(s): I25.10 - Atherosclerotic heart disease of [place] coronary artery without angina pectoris (5) Humerus fracture Current Visit: Yes Status: Acute Assessment and plan: Pt has significant pain and swelling in arm. Ortho service contacted for re evaluation. Neurovascular intact at this time. Plan for rehab at discharge. Qualifiers: Encounter type: subsequent encounter Humerus Location: shaft Fracture type: closed Fracture morphology: unspecified fracture morphology Laterality : right Fracture healing: with routine healing Qualified Code(s): S42.301D - Unspecified fracture of shaft of humerus, right arm, subsequent encounter for fracture with routine healing - Subjective Interval history: Ms. Hendrix is currently admitted for fracture R humerus and need for IV anticoagulation due to history of arterial thrombus. She is moderate to high risk due to continued issues with R arm and need for IV heparin. Ms. Hendrix is having a lot of pain in her arm. She is using pain meds but feels it is more swollen today. No fever or chills. No GI issues. Denies parasthesias of R hand. - Constitutional Vitals: Temp Pulse Resp BP Pulse Ox 98.1 F 102 18 131/81 97 12/11/16 16:05 12/11/16 16:05 12/11/16 16:05 12/11/16 16:05 12/11/16 16:05 General appearance: Present: A&O X 3, pleasant, answers questions appropriately - Head Head exam: Present: normocephalic - Eye Eye exam: Present: EOMI, conjuntiva pink - ENT ENT exam: Present: mucous membranes moist - Respiratory Respiratory exam: Present: CTAB. Absent: rhonchi, wheezes - Cardiovascular Cardiovascular exam: Present: RRR. Absent: systolic murmur - GI/Abdominal GI/Abdominal exam: Present: soft. Absent: tenderness - Extremities Exam Additional comments: RUE with edema of upper portion. Good radial pulse felt. Hand cool but has good cap refill. Sensation intact of R arm. - Neurological Exam Neurological exam: Present: alert, oriented X3, no focal deficits - Skin Skin exam: Present: warm. Absent: rash Internal Medicine: Result - Labs CBC & Chem 7: 12/10/16 05:02 12/10/16 08:55 - ABG Interpretation ABG results: PT/INR, D-dimer PT 11.1 Seconds (9.4-12.1) 12/10/16 05:02 - VTE Documentation of Mechanical Device: Venous foot pump, device Consult Discharge Plan - Plan Additional Instructions: Follow-up with PCP for hyperglycemia. Referrals: Maria Ines Peña CNP [Advanced Practice Nurse] - NO,PCP [Primary Care Provider] -
[2016-12-11] MEDS ORDERED: Insulin LISPRO 300 UNITS/3 ML VIAL SQ SCH (21:00)
[2016-12-12] MEDS: *HR* HYDROmorphone (PF) 1 MG/ML SYRINGE IVP PRN ×6 (01:15→17:35)
[2016-12-12] MEDS: *HR* HYDROcodone/Acet 5/325 mg TABLET PO PRN ×2 (03:05→08:08)
[2016-12-12] MEDS: Nicotine 21 MG PATCH.TD24 TD SCH (08:07)
[2016-12-12] MEDS: Insulin LISPRO 300 UNITS/3 ML VIAL SQ SCH ×3 (08:07→22:04)
[2016-12-12] MEDS: Aspirin Enteric Coated 81 MG Tablet PO SCH (08:08)
[2016-12-12] MEDS: Metoprolol XL (24 HR) Succ 25 MG TAB.ER.24H PO SCH (08:08)
--- NOTE | 2016-12-12 08:40 | Venous Imaging Report ---
UE Venous Duplex Patient Name:Leisa Hendrix Order Number:[id number] Procedure Date:12/11/2016 Date:1960Age:56 yrs Gender:Female Location:[facility] Room #: 2A62 Patient Assessment Coordinator:Faviola Salcido RVT, CS Referring MD:Adalberto Bonilla MD help desk analyst:None Reading MD:Elio Anne MD , FACS Primary Indications:swelling Secondary Indications: Risk Factors Yes/No Anticoagulants Yes Impressions: Right upper extremity: normal superficial and deep exam but this is a limited exam. Left upper extremity: normal contralateral exam. Findings Venous Duplex Results: Right: Venous imaging of the upper extremity reveals full patency and normal vessel compressibility of the right jugular, right subclavian, right brachial, right cephalic, right basilic, right radial and right ulnar. Doppler signals in the evaluated veins were normal. The right subclavian, right brachial, right cephalic and right basilic veins were not well visualized. The right axillary vein was not assessed. Left: Venous imaging of the upper extremity reveals full patency and normal vessel compressibility of the left subclavian. Doppler signals in the evaluated veins were normal. Upper Extremity Venous Duplex Side Vein Compress Spontaneous Flow Augment Right Jugular Normal Yes Phasic Yes Right Subclavian Normal Yes Phasic Yes Right Axillary Right Brachial Normal Yes Phasic Yes Right Cephalic Normal Yes Phasic Yes Right Basilic Normal Yes Phasic Yes Right Radial Normal Yes Phasic Yes Right Ulnar Normal Yes Phasic Yes Left Subclavian Normal Yes Phasic Yes Updated by Elio Anne MD, FACS on 12/12/2016 8:31:30 AM Elio Anne MD electronically signed on 12/12/2016 8:31:45 AM with status of Final
[2016-12-12] MEDS ORDERED: *HR* OxyCODONE Immed Rel 5 MG TABLET PO PRN (12:12)
[2016-12-12] MEDS ORDERED: *HR* OxyCODONE/APAP 7.5/325 TABLET PO PRN (12:12)
--- NOTE | 2016-12-12 12:47 | Physician Discharge Referral ---
ExtendedCare Referral Info Provider in Charge after Transfer: PCP Institutional Level of Care: Skilled - Diagnosis (1) Femoral popliteal artery thrombus Priority: Secondary Status: Resolved (2) Tobacco abuse Priority: Secondary Status: Chronic (3) Diabetes mellitus Priority: Secondary Status: Chronic (4) CAD (coronary artery disease) Priority: Secondary Status: Chronic (5) Humerus fracture Priority: Primary Status: Acute Expected Duration of Placement: Less than 30 days Prognosis: Good Aware of Diagnosis: Patient Aware of Prognosis: Patient - Transfer Medications Prescriptions: OxyCODONE/APAP 7.5/325 [Percocet 7.5/325 MG] 1 each PO Q6HR PRN #10 tab PRN Reason: Moderate to Severe Pain (4-10) OxyCODONE Immed Rel [Roxicodone 5 MG] 5 mg PO Q3H PRN #10 tab PRN Reason: Pain Home Medications: Aspirin [Lo-Dose Aspirin EC] 81 mg PO DAILY 12/01/16 [History] Acetaminophen [Tylenol] 650 mg PO Q6HR PRN tab 12/12/16 [Rx] Atorvastatin [Lipitor] 20 mg PO HS tab 12/12/16 [Rx] Metoprolol XL (24 HR) Succ [Toprol Xl] 25 mg PO DAILY 12/12/16 [Rx] Nicotine Patch [Nicoderm] 21 mg TD DAILY 12/12/16 [Rx] OxyCODONE Immed Rel [Roxicodone 5 MG] 5 mg PO Q3H PRN #10 tab 12/12/16 [Rx] OxyCODONE/APAP 7.5/325 [Percocet 7.5/325 MG] 1 each PO Q6HR PRN #10 tab [Rx] Rivaroxaban [Xarelto] 20 mg PO DAILY@1700 tab 12/12/16 [Rx] Allergies/Adverse Reactions: Allergies No Known Allergies Allergy (Verified 12/01/16 06:06) - Respiratory Orders None Smoking Cessation: Smoking cessation has been advised. For more information, call the [place] Tobacco Quit Line at 1-027-SFYR-NOW. - Ancillary Orders May use pressure relief devices daily prn, May consult with Dentist, Gill Net Stringer, Adjudication Specialist PRN - Advance Directives Code Status: Full Code - History and Physical History/Physical reviewed & approved w/add comments: Pt now s/p ORIF on R humerus. - Mobility Orders Ambulate - Rehabiliation Orders Rehab Potential: Good Rehab Orders: Evaluation for Physical Therapy, Evaluation for Occupational Therapy - Treatments Skin tear care topically daily PRN per policy, May check for fecal impaction rectally daily PRN, Fleet enema rectally every other day PRN cleansing purposes - Diet Orders No Concentrated Sweets, Cardiac CERTIFICATION: I certify that the transfer of the above named patient to an Extended Care Facility is necessary for the continuing treatment of the diagnosis listed. The above information is true and accurate reflection of patient's current condition. Confidential - Redisclosure prohibited without a patient's written consent.
[2016-12-12] MEDS ORDERED: *HR* Rivaroxaban 10 MG TABLET PO SCH (13:00)
--- NOTE | 2016-12-12 15:15 | Internal Med Progress Note ---
<Conrado Jimenes - Last Filed: 12/12/16 15:12> Date of Encounter: 12/12/16 Time of Encounter: 10:20 - Assessment and plan (1) Humerus fracture Current Visit: Yes Status: Acute Assessment and plan: Pt has significant pain and swelling in arm. Ortho service contacted for re evaluation. Neurovascular intact at this time. Significant swelling and redness, as well as pitting edema. Possible compartment syndrome. Ortho is on board. Plan for rehab at discharge. Qualifiers: Encounter type: subsequent encounter Humerus Location: shaft Fracture type: closed Fracture morphology: unspecified fracture morphology Laterality : right Fracture healing: with routine healing Qualified Code(s): S42.301D - Unspecified fracture of shaft of humerus, right arm, subsequent encounter for fracture with routine healing (2) Tobacco abuse Current Visit: Yes Status: Chronic Assessment and plan: Patient has been placed on a nicotine patch. (3) DVT (deep venous thrombosis) Current Visit: Yes Status: Acute Assessment and plan: Patient has been placed on heparin drip. -Will place on Xarelto upon discharge. 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 Qualifiers: Congestive heart failure type: unspecified congestive heart failure type Congestive heart failure chronicity: chronic Qualified Code(s): I50.9 - Heart failure, unspecified (5) Hyperglycemia Current Visit: Yes Status: Acute Assessment and plan: Patient had elevated blood sugar. -Glucose this morning was 413. -Never diagnosed as diabetic. -Follow up with PCP. - Subjective Interval history: She was seen and examined at bedside this morning. Patient states that the only problem that she is having this morning is some pain in her arm. On this morning appeared swollen, possible compartment syndrome. Area is red and hand is much colder today than it was yesterday. Orthopedics is on board. Patient denies having any shortness of breath, chest pain, or leg pain. Pitting edema is appreciated on physical exam. - Constitutional Vitals: Temp Pulse Resp BP Pulse Ox 98.4 F 96 18 152/87 100 12/12/16 12:09 12/12/16 12:09 12/12/16 12:09 12/12/16 12:09 12/12/16 12:09 General appearance: Present: A&O X 3, pleasant, answers questions appropriately - Head Head exam: Present: atraumatic, normocephalic - Neck Neck exam general surgery: Present: supple, trachea midline. Absent: lymphadenopathy - Respiratory Respiratory exam: Present: CTAB. Absent: accessory muscle use, rales, rhonchi, wheezes - Cardiovascular Cardiovascular exam: Present: RRR, +S1, +S2. Absent: diastolic murmur, gallop, rubs, systolic murmur - Extremities Exam Extremities exam: Absent: calf tenderness, cyanotic - Expanded Upper Extremities Exam Upper Arm exam: Present: erythema, swelling, tenderness (Significant swelling in the right upper arm, possibly suggestive of compartment syndrome. ) - Skin Skin exam: Present: dry, intact Internal Medicine: Result - Labs CBC & Chem 7: 12/10/16 05:02 12/10/16 08:55 - ABG Interpretation ABG results: PT/INR, D-dimer PT 11.1 Seconds (9.4-12.1) 12/10/16 05:02 - VTE Documentation of Mechanical Device: Venous foot pump, device Consult Discharge Plan - Plan Additional Instructions: Follow-up with PCP for hyperglycemia. Referrals: Maria Ines Peña NAPPER TENDER [Advanced Practice Nurse] - (patient is going to [facility]) NO,PCP [Primary Care Provider] - Prescriptions: OxyCODONE/APAP 7.5/325 [Percocet 7.5/325 MG] 1 each PO Q6HR PRN #10 tab PRN Reason: Moderate to Severe Pain (4-10) OxyCODONE Immed Rel [Roxicodone 5 MG] 5 mg PO Q3H PRN #10 tab PRN Reason: Pain <Rashaad Lewis - Last Filed: 12/12/16 18:39> Date of Encounter: 12/12/16 - Assessment and plan (1) Femoral popliteal artery thrombus Current Visit: Yes Status: Resolved (2) Tobacco abuse Current Visit: Yes Status: Chronic (3) Diabetes mellitus Current Visit: Yes Status: Chronic Qualifiers: Diabetes mellitus type: type 2 Diabetes mellitus complication status: with circulatory complication Diabetes mellitus complication detail: with peripheral angiopathy without gangrene Diabetes mellitus nursing home insulin use : without laborer plumbing use Qualified Code(s): E11.51 - Type 2 diabetes mellitus with diabetic peripheral angiopathy without gangrene (4) CAD (coronary artery disease) Current Visit: Yes Status: Chronic Qualifiers: Coronary Disease-Associated Artery/Lesion type: [place] artery [place] vs. transplanted heart: [place] heart Associated angina: without angina Qualified Code(s): I25.10 - Atherosclerotic heart disease of [place] coronary artery without angina pectoris (5) Humerus fracture Current Visit: Yes Status: Acute Qualifiers: Encounter type: subsequent encounter Humerus Location: shaft Fracture type: closed Fracture morphology: unspecified fracture morphology Laterality : right Fracture healing: with routine healing Qualified Code(s): S42.301D - Unspecified fracture of shaft of humerus, right arm, subsequent encounter for fracture with routine healing - Constitutional Vitals: Temp Pulse Resp BP Pulse Ox 98.7 F 97 14 131/64 98 12/12/16 18:29 12/12/16 18:29 12/12/16 18:29 12/12/16 18:29 12/12/16 18:29 Internal Medicine: Result - Labs CBC & Chem 7: 12/12/16 18:09 12/10/16 08:55 Labs: Short CBC 12/12/16 Range/Units 18:09 Hgb 7.3 L D (11.5-15.4) g/dL Hct 23.2 L (35.3-44.9) % - ABG Interpretation ABG results: PT/INR, D-dimer PT 11.1 Seconds (9.4-12.1) 12/10/16 05:02 - Impressions Impressions Humerus X-Ray 12/12/16 16:12 IMPRESSION: ORIF humeral fracture without complication. D/ / 12/12/2016 17:23:33 Adolfo Thomas MD / nacho Interpreting Provider: Adolfo Thomsa MD - Attending Attestation I examined this patient and my medical decision-making was reviewed with the Resident Physician on 12/12/16. I agree with the documented findings, disposition and treatment plan as described except to the extent set forth below. Ms. Hendrix is currently admitted due to hx of arterial thrombosus and need for anticoagulation and fracture of R humerus. She is moderate to high risk due to potential for worsening clinical status. Ms. Hendrix continues to have upper extremity swelling and pain. No fever or chills. No GI symptoms. Has been accepted for SNF at discharge. Transitioning to PO med that is not as expensive today. Exam Alert. Mod distress due to pain Mucus membranes moist RUE with edema Pulse palpable Heart reg No wheeze I/P 1. RUE swelling - per ortho today. 2. Hx of arterial thrombus in 08/02 - was to be on laborer plumbing anticoagulation. 3. DM Further diagnoses and plan as above.
--- NOTE | 2016-12-12 15:25 | Event Note ---
Date of Encounter: 12/12/16 Time of Encounter: 15:13 Patient seen at request of hospitalist secondary to hand swelling concern for compartment syndrome. On exam patient is writhing in pain stating she feels her arm is going to explode. She states she thinks her brace needs loosened secondary to "squeezing" feeling. Admits to decreased sensation to right hand to right elbow. Admits to significant and escalating pain over the past appx 8 hours. On exam patient's brace is only loosly applied. RUE is very swollen with 3+ pitting edema to hand up to right shoulder nearly to chest wall. Patient exquisitely tender to even light palpation of the RUE. Radial pulse present Brachial pulse difficult to palpate. Right hand pale and cool. Motion intact to right fingers and wrist. Discussed with Hospitalist team - patient had been continued on Heparin post operatively instead of Eliquis and had a dose of Xarelto appx 3 hours ago. Patient seen by Dr. Bonilla concurrently. Will take to surgery now for irrigation and debridement with concern for compartment syndrome possible fasciotomy. Patient written consent obtained at bedside and all questions answered to patient's satisfaction prior to transport to OR.
[2016-12-12] MEDS ORDERED: Famotidine 20 MG/2 ML VIAL ONE (15:45)
[2016-12-12] MEDS ORDERED: Metoclopramide 10 MG/2 ML VIAL ONE (15:45)
--- NOTE | 2016-12-12 15:51 | Anesthesia Evaluation PreOp ---
Date of Encounter: 12/12/16 Time of Encounter: 15:46 - Past History Planned Operation: RUE Fasciotomy/I&D Cardiac History: Denies any Significant Hx, AK (known RCA STEMI 2014), HTN ( maintained on NOrvasc, Lisionpril, Metoprolol), Other (LHC 07/2014 - mild CAD, LVEF 40%, ECHO 12/07/2016 - LVEF 45-5-%. Hypokinesis of INf, basal & apical inferior person. LVH. 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 Chronic Pain maintained on Gabapentin, Cyclobenzaprine, Hydrocodone) Other Medical History: Bleeding (Hx of DVT maitnained on Eliquis but "ran out" several onths ago and refused Lovenox infjections. Admitted 12/07/2016 for anticoagulation prior to Surgery; now with compartment syndrome requiring I&D/ FAsciotomy on 12/12/2016) Alcohol Use: none Drug use: none Medications and Allergies Aspirin [Lo-Dose Aspirin EC] 81 mg PO DAILY 12/01/16 [History] Acetaminophen [Tylenol] 650 mg PO Q6HR PRN tab 12/12/16 [Rx] Atorvastatin [Lipitor] 20 mg PO HS tab 12/12/16 [Rx] Metoprolol XL (24 HR) Succ [Toprol Xl] 25 mg PO DAILY 12/12/16 [Rx] Nicotine Patch [Nicoderm] 21 mg TD DAILY 12/12/16 [Rx] OxyCODONE Immed Rel [Roxicodone 5 MG] 5 mg PO Q3H PRN #10 tab 12/12/16 [Rx] OxyCODONE/APAP 7.5/325 [Percocet 7.5/325 MG] 1 each PO Q6HR PRN #10 tab [Rx] Rivaroxaban [Xarelto] 20 mg PO DAILY@1700 tab 12/12/16 [Rx] Allergies No Known Allergies Allergy (Verified 12/01/16 06:06) - Meds/Allergy Pre-op Review Medications Reviewed: Yes Allergies Reviewed: Yes Beta Blockers on Current Med List: Yes (Metoprolol) If Beta Blockers taken, Date/Time (Last Dose taken): 12/12/2016 @0808 Anesthesia Results - Labs 12/10/16 05:02 12/10/16 08:55 Laboratory Tests 12/10/16 12/10/16 12/12/16 05:02 05:02 11:48 Sodium 130 L Potassium 5.3 H Chloride 96 L Carbon Dioxide 24 BUN 21 H Creatinine 1.11 Est GFR (Non-Af Amer) 51 L POC Glucose 312 H Est Mean Plasma Glucose 203 Hemoglobin A1c 8.7 H - Imaging EKG: image reviewed Anesthesia Exam Vital Signs Temp Pulse Resp BP Pulse Ox 12/12/16 12:09 98.4 F 96 18 152/87 100 12/12/16 08:37 97.9 F 87 19 140/84 97 12/11/16 19:47 98.2 F 110 17 141/89 96 12/11/16 16:05 98.1 F 102 18 131/81 97 Intake and Output 12/12/16 12/12/16 12/12/16 07:59 15:59 23:59 Intake Total 120 / 120 Balance 120 / 120 Intake: Oral 120 / 120 Other: # Urine Diapers 1 Blood Glucose* 312 - HEENT Pupil (Motor): Pupils equal, EOMI Mallampati: II Teeth: Edentulous Oral Opening: Greater than 3 - SENIOR HRIS ANALYST LOC: Oriented SENIOR HRIS ANALYST Motor: Normal LUE, Normal RLE, Normal LLE, Normal Face, Deficit RUE SENIOR HRIS ANALYST Sensory: Normal: LUE, RLE, LLE, Face, Deficit: RUE - Cardiac Rhythm: Regular Murmur: None JVD: No - Pulmonary Breath Sounds: bilateral Clear Respiratory Effort: Symmetrical Anesthesia Assess/Plan ASA Score: 3 (HTN, Poorly controlled DM, Smoker, Hx of DVT) Modified Sergio Scale for Level of Consciousness: Cooperative, oriented, and tranquil Anesthetic Plan: General Monitoring Plan: Standard Monitors Recovery Plan: PACU Anes Supervising Prov Stmt: Pt seen/evaluated, R&B Discussed, questions answered and consent obtained. Roxana Hernandez MD
[2016-12-12] MEDS ORDERED: EPHEDrine 50 MG/ML VIAL ONE (16:23)
[2016-12-12] MEDS ORDERED: Ondansetron 4 MG/2 ML VIAL ONE (16:23)
[2016-12-12] MEDS ORDERED: *HR* Propofol 200 MG/20 ML VIAL IVP ONE (16:23)
[2016-12-12] MEDS ORDERED: Dexamethasone 4 MG/ML VIAL ONE (16:23)
[2016-12-12] MEDS ORDERED: *HR* FentaNYL (PF) 100 MCG/2 ML VIAL ONE ×2 (16:23)
[2016-12-12] MEDS ORDERED: Lidocaine -MPF 2% 2 ML VIAL ONE (16:23)
[2016-12-12] MEDS ORDERED: *HR* Phenylephrine 10 MG/ML VIAL ONE (16:23)
[2016-12-12] MEDS ORDERED: *HR* HYDROmorphone 2 MG/ML SYRINGE ONE (16:33)
--- NOTE | 2016-12-12 16:49 | Orthopedic Operative Note ---
Date of procedure: 12/12/16 Pre-op diagnosis: Right arm impending compartment syndrome Post-op diagnosis: same Procedure: Procedure: Right upper arm irrigation and debridement Estimated blood loss 100 mL One ROMELIA drain Indication for surgery: Patient status post open reduction internal fixation of right humerus on Friday,The patient required heparin for anticoagulation postoperatively due to reported history of arterial thrombosis as per medical team. Patient was doing well getting ready for discharge had increased swelling and loss of function right upper extremity. Patient was evaluated significant swelling and upper arm indicated for emergent surgery for fear of impending compartment syndrome. Findings: Disrupted deltopectoral interval closure extensive hematoma no active bleeding Procedure: Patient taken to the operating room placed on the operating table. After general anesthesia was administered the patient was placed in the modified beachchair position and all pressure points were padded appropriately the head was stabilized in neutral position the dressing was removed from the right arm minimal serosanguineous drainage from around the jacqui. Jacqui were removed and the right upper extremity was prepped and draped in the sterile surgical fashion. The old incision was opened up with a hemostat and there was direct violation of the deltopectoral interval closure. There was a large extensive hematoma. Cultures were obtained at this point. No purulent material was identified. Evacuation of the hematoma manually was performed as well as manual evacuation hematoma in the distal upper arm. Preoperatively the forearm was soft with minimal concern of compartment syndrome of the forearm. The wound was irrigated with 3 L of pulse irrigation then 1 L of Bactisure irrigation, followed by 1 L of pulse irrigation normal saline. There was no active bleeding area some slight oozing. A ROMELIA drain was placed through a small stab incision at the shoulder. The deltopectoral interval was closed over the ROMELIA drain with a running #2 PDS suture. The PA closed the subcutaneous tissue and the skin Subcutaneous tissues irrigated and closed deep with #1 PDS suture superficially with 0 Monocryl suture. Skin was closed with skin jacqui. Patient was placed in a sling extubated and transferred to recovery room in stable condition. Anesthesia: GETA Surgeon: Adalberto Bonilla Condition: stable Disposition: PACU
[2016-12-12] MEDS ORDERED: Ondansetron 4 MG/2 ML VIAL IVP ONE (17:09)
[2016-12-12] MEDS ORDERED: *HR* Labetalol 20 MG/4 ML SYRINGE IVP PRN (17:09)
[2016-12-12] MEDS ORDERED: *HR* Promethazine 25 MG/ML VIAL IVP PRN (17:09)
--- NOTE | 2016-12-12 17:51 | Anesthesia Evaluation Post Op ---
Date of Encounter: 12/12/16 Time of Encounter: 17:50 - Vital Signs Vital Signs: Vital Signs/O2 Sat, Most Current Temp Pulse Resp BP Pulse Ox 97.9 F 96 14 126/70 100 12/12/16 17:32 12/12/16 17:42 12/12/16 17:42 12/12/16 17:42 12/12/16 17:42 - Lungs Lungs: Clear Ascult./Percussion - Airway Airway: Non-obstructed - Cardiovascular Regular Rate - Mental Status Mental Status: Alert & Oriented, Answers Appropriately - Pain Pain Scale: 3 (dilaudid) Pain Scale used: Numeric (1 - 10) - Nausea Vomiting Nausea Vomiting: Not Present - Hydration Hydration: Tolerates oral liquids, Ice chips, Has not voided - Discharge PostOp Status: Transfer Patient to floor (fully awake)
[2016-12-12] MEDS ORDERED: *HR* Dextrose 50 % in Water (Syg) 50 ML SYRINGE IVP PRN (17:53)
[2016-12-12] MEDS ORDERED: MOM Conc 10 ML UD.LIQ PO PRN ×2 (17:53)
[2016-12-12] MEDS ORDERED: Ondansetron 4 MG/2 ML VIAL IVP PRN ×2 (17:53)
[2016-12-12] MEDS ORDERED: APIXABAN 5 MG TABLET PO SCH (17:53)
[2016-12-12] MEDS ORDERED: Dextrose Gel 15 GM PO PRN ×2 (17:53)
[2016-12-12] MEDS ORDERED: Temazepam 15 MG CAPSULE PO PRN ×2 (17:53)
[2016-12-12] MEDS ORDERED: D5% in Water 1,000 ML IVC PRN (17:53)
[2016-12-12] MEDS ORDERED: Acetaminophen 325 MG TABLET PO PRN (17:53)
[2016-12-12] MEDS ORDERED: Ringers Solution, Lactated 1,000 ML IVC SCH (17:53)
[2016-12-12] MEDS ORDERED: ceFAZolin 2,000 MG in D5% in Water 100 ML IVPB SCH (17:53)
[2016-12-12] MEDS ORDERED: Sennosides 8.6 MG TABLET PO PRN ×2 (17:53)
[2016-12-12] MEDS ORDERED: Naloxone 0.4 MG/ML INJ IVP PRN ×2 (17:53)
[2016-12-12] MEDS: Ringers Solution, Lactated 1,000 ML IVC SCH (18:10)
[2016-12-12 18:25] LABS: Hematocrit 23.2 % (35.3-44.9); Hemoglobin 7.3 g/dL (11.5-15.4)
[2016-12-12] MEDS: *HR* OxyCODONE/APAP 7.5/325 TABLET PO PRN (21:05)
[2016-12-12] MEDS: ceFAZolin 2,000 MG in D5% in Water 100 ML IVPB SCH (23:09)
[2016-12-13] MEDS ORDERED: ceFAZolin 2,000 MG in D5% in Water 100 ML IVPB SCH
[2016-12-13 01:42] LABS: Hematocrit 17.1 % (35.3-44.9)
[2016-12-13 01:46] LABS: Hemoglobin 5.4 g/dL (11.5-15.4)
[2016-12-13] MEDS: *HR* OxyCODONE/APAP 7.5/325 TABLET PO PRN ×4 (03:05→22:26)
[2016-12-13] MEDS ORDERED: 0.9 % Sodium Chloride 500 ML ONE (04:09)
--- NOTE | 2016-12-13 06:32 | Orthopedics Progress Note ---
Date of Encounter: 12/13/16 Time of Encounter: 06:32 Subjective Interval history: Patient was seen this morning doing well without complaints. Afebrile vital signs stable. Operative extremity: Neurovascularly intact Dressing clean dry and intact Minimal drainage from the ROMELIA will DC today compartments soft Assessment and plan: Continue with postoperative care Hematocrit 17 patient receiving 2 units Objective Vital signs: Vital Signs Temp Pulse Resp BP Pulse Ox 12/13/16 04:56 99.0 F 91 16 115/55 100 12/13/16 04:41 99.2 F 91 16 108/70 97 12/13/16 04:04 98.6 F 72 16 93/65 96 12/12/16 23:29 98.8 F 88 16 110/73 94 12/12/16 21:45 98.9 F 100 16 100/72 100 12/12/16 20:45 99.2 F 110 16 155/72 94 12/12/16 19:45 98.9 F 105 16 111/74 100 12/12/16 18:29 98.7 F 97 14 131/64 98 12/12/16 18:13 98.0 F 96 14 130/79 100 12/12/16 18:00 98.1 F 99 15 120/68 94 12/12/16 17:51 92 12 106/74 100 12/12/16 17:42 96 14 126/70 100 12/12/16 17:32 97.9 F 93 10 133/69 100 12/12/16 17:22 103 16 165/78 96 12/12/16 17:12 104 18 159/83 96 12/12/16 17:02 97.9 F 103 18 143/91 98 12/12/16 12:09 98.4 F 96 18 152/87 100 12/12/16 08:37 97.9 F 87 19 140/84 97 Intake and Output 12/12/16 12/12/16 12/13/16 15:59 23:59 07:59 Intake Total 60 / 60 150 / 150 Output Total 115 / 115 30 / 30 Balance -55 / -55 120 / 120 Intake: IV Fluids 100 / 100 Ancef 2,000 MG In 100 / 100 Dextrose 5% 100 ML @ 200 mls/hr IVPB Q8H [facility] Rx#: [id number] Oral 60 / 60 Blood Product 50 / 50 Rbcs Leuko Poor As-1 50 / 50 Unit [id number] Output: Urine 0 / 0 Estimated Blood Loss 100 / 100 Wound Drainage Right Shoulder Other: # Urine Diapers 1 Weight 60.872 kg Blood Glucose* 312 409 358 Patient Weight 12/13/16 23:59 Weight 60.872 kg - Labs CBC & BMP: 12/13/16 01:04 12/10/16 08:55 Labs: Abnormal lab results WBC 12.0 K/mcL (4.3-11.1) H 12/10/16 05:02 RBC 3.77 M/mcL (3.82-4.97) L 12/10/16 05:02 Hgb 5.4 g/dL (11.5-15.4) L* D 12/13/16 01:04 Hct 17.1 % (35.3-44.9) L 12/13/16 01:04 Neutrophils # 10.5 K/mcL (1.6-8.9) H 12/10/16 05:02 APTT 68.0 Seconds (26.0-36.0) H 12/11/16 20:20 Heparin Anti-Xa, Unfract 1.01 IU/mL (0.30-0.70) H* 12/09/16 17:02 Sodium 130 mEq/L (136-145) L 12/10/16 05:02 Potassium 5.3 mEq/L (3.5-4.5) H 12/10/16 05:02 Chloride 96 mEq/L (98-109) L 12/10/16 05:02 BUN 21 mg/dL (7-20) H 12/10/16 05:02 Est GFR (Non-Af Amer) 51 (> 60) L 12/10/16 05:02 Glucose 413 mg/dL (70-99) H 12/10/16 08:55 POC Glucose 358 (58-89) H 12/13/16 00:16 Hemoglobin A1c 8.7 % (-5.6) H 12/10/16 05:02 - VTE Documentation of Mechanical Device: Venous foot pump, device Consult Discharge Plan - Plan Additional Instructions: Follow-up with PCP for hyperglycemia. Referrals: Maria Ines Peña, CHILD CARE SUPERVISOR [Advanced Practice Nurse] - (patient is going to [facility]) NO,PCP [Primary Care Provider] - Prescriptions: OxyCODONE Immed Rel [Roxicodone 5 MG] 5 mg PO Q3H PRN #10 tab PRN Reason: Pain OxyCODONE/APAP 7.5/325 [Percocet 7.5/325 MG] 1 each PO Q6HR PRN #10 tab PRN Reason: Moderate to Severe Pain (4-10)
[2016-12-13] MEDS: ceFAZolin 2,000 MG in D5% in Water 100 ML IVPB SCH (08:24)
[2016-12-13] MEDS: Nicotine 21 MG PATCH.TD24 TD SCH (08:27)
[2016-12-13] MEDS: Insulin LISPRO 300 UNITS/3 ML VIAL SQ SCH ×5 (08:29→21:13)
[2016-12-13] MEDS ORDERED: Metoprolol XL (24 HR) Succ 25 MG TAB.ER.24H PO SCH (09:00)
[2016-12-13] MEDS: Aspirin Enteric Coated 81 MG Tablet PO SCH (09:08)
[2016-12-13] MEDS ORDERED: 0.9 % Sodium Chloride 250 ML ONE (10:52)
[2016-12-13] MEDS ORDERED: *HR* HYDROmorphone (PF) 1 MG/ML SYRINGE IVP ONE (12:06)
[2016-12-13] MEDS ORDERED: 0.9 % Sodium Chloride 1,000 ML IVC ONE (15:13)
[2016-12-13] MEDS ORDERED: *HR* Rivaroxaban 10 MG TABLET PO SCH ×2 (17:00)
[2016-12-13 17:10] LABS: Hematocrit 28.6 % (35.3-44.9)
[2016-12-13 17:17] LABS: Hemoglobin 9.3 g/dL (11.5-15.4)
--- NOTE | 2016-12-13 17:17 | Event Note ---
Date of Encounter: 12/13/16 Time of Encounter: 09:05 I examined this patient and my medical decision-making was reviewed with the Resident Physician on 12/13/16. I agree with the documented findings, disposition and treatment plan as described except to the extent set forth below. 56 YO F being managed for R humeral fracture, s/p ORIF with complications of hematoma collection, s/o evacuation of hematoma 12/12. She has a PMH of DM, Femoral artery thrombus on heparin, CAD. She has acute blood loss anemia, with her Hb drop to 5.4 today, her Hb on arrival was 11. She is hemodynamically stable and denies new complains. Physical exam: VSS, not in distress. Extremity exam, RUE less swollen per patient, ROMELIA drain is empty and not draining actively,her fingers are pink and capillary refill is WNL. Chest is clear, HS S1, S2. Labs and Imaging reviewed. no reent chem. H/H noted . Uncontrolled blood sugar, ranging from 300-400. Plan is to continue anticoagulation with Xarelto, transfuse 2 units of blood, continue pain control, add prandial and basal insulin, repeat H/H after transfusion, monitor vital signs. Patient is moderate risk due to acute blood loss anemia on anticoagulation Obtain Chem. Contine other management Rest of details as in resident physician's documentation
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
[2016-12-13] MEDS: *HR* OxyCODONE Immed Rel 5 MG TABLET PO PRN (21:11)
[2016-12-13] MEDS: Insulin DETEMIR 100 UNIT/ML X5UNITS SQ SCH (21:23)
[2016-12-13] MEDS: Ringers Solution, Lactated 1,000 ML IVC SCH (22:30)
[2016-12-14] MEDS: *HR* OxyCODONE/APAP 7.5/325 TABLET PO PRN ×2 (04:34→10:55)
[2016-12-14 07:12] LABS: Basophils % 0.4 %; Eosinophils # 0.4 K/mcL (0.0-0.6); Eosinophils % 3.3 %; Hematocrit 24.6 % (35.3-44.9); Hemoglobin 8.1 g/dL (11.5-15.4); Immature Granulocytes % 1.4 % (0-4); Lymphocytes # 4.1 K/mcL (0.6-4.6); Lymphocytes % 36.5 %; Mean Corpuscular HGB Conc 32.9 g/dL (31.6-35.5); Mean Corpuscular Hemoglobin 29.7 pg (28.0-33.3); Mean Corpuscular Volume 90.1 fL (83.0-100.0); Mean Platelet Volume 11.8 fL (9.4-12.4); Monocytes # 0.8 K/mcL (0.0-1.3); Monocytes % 6.9 %; Platelet Count 244 K/mcL (140-400); Red Blood Count 2.73 M/mcL (3.82-4.97); Red Cell Distribution Width 13.9 % (11.5-14.5); Segmented Neutrophils % 51.5 %
[2016-12-14 07:18] LABS: Neutrophils # 5.8 K/mcL (1.6-8.9)
[2016-12-14 07:32] LABS: BUN/Creatinine Ratio 23 (6-26); Blood Urea Nitrogen 17 mg/dL (7-20); Calcium 8.8 mg/dL (8.6-10.8); Carbon Dioxide 24 mEq/L (19-29); Chloride 105 mEq/L (98-109); Glucose 245 mg/dL (70-99); Osmolality,Calculated 290 (280-300); Potassium 4.1 mEq/L (3.5-4.5); Sodium 135 mEq/L (136-145); eGFR For African Americans > 60 (> 60); eGFR For Non-African Americans > 60 (> 60)
[2016-12-14] MEDS: *HR* OxyCODONE Immed Rel 5 MG TABLET PO PRN ×3 (07:38→15:29)
--- NOTE | 2016-12-14 07:38 | Orthopedics Progress Note ---
Date of Encounter: 12/14/16 Time of Encounter: 07:37 Subjective Interval history: Patient was seen this morning doing well without complaints. Afebrile vital signs stable. Operative extremity: Neurovascularly intact Dressing clean dry and intact Swelling improving Assessment and plan: Continue with postoperative care Hematocrit 24 continue to encourage exercises to decrease swelling and hand. Stable for discharge Objective Vital signs: Vital Signs Temp Pulse Resp BP Pulse Ox 12/14/16 06:50 98.5 F 87 16 134/86 97 12/14/16 04:55 98.3 F 84 18 130/84 97 12/14/16 01:09 98.0 F 85 18 118/77 96 12/13/16 19:32 98.0 F 70 17 129/69 95 12/13/16 19:27 98.3 F 83 17 130/71 98 12/13/16 16:00 98.2 F 87 14 125/72 94 12/13/16 15:10 98.8 F 91 16 79/55 98 12/13/16 11:45 99.2 F 83 18 101/66 99 12/13/16 11:30 98.9 F 75 17 103/67 12/13/16 08:24 97.9 F 98 19 132/73 97 Intake and Output 12/13/16 12/13/16 12/14/16 15:59 23:59 07:59 Intake Total 1385 / 1385 500 / 500 Output Total 350 / 350 Balance 1035 / 1035 500 / 500 Intake: IV Fluids 500 / 500 0.9 % Sodium Chloride 500 500 / 500 ML As .ROUTE .STK-MED ONE Rx#:[id number] Oral 200 / 200 500 / 500 Blood Product 685 / 685 Rbcs Leuko Poor As-1 350 / 350 Unit [id number] Rbcs Leuko Poor As-1 335 / 335 Unit [id number] Output: Urine 350 / 350 Wound Drainage 0 / 0 Right Shoulder 0 / 0 Other: # Voids 1 # Urine Diapers 1 Blood Glucose* 180 301 - Labs CBC & BMP: 12/14/16 05:41 12/14/16 05:41 Labs: Abnormal lab results WBC 11.2 K/mcL (4.3-11.1) H 12/14/16 05:41 RBC 2.73 M/mcL (3.82-4.97) L 12/14/16 05:41 Hgb 8.1 g/dL (11.5-15.4) L 12/14/16 05:41 Hct 24.6 % (35.3-44.9) L 12/14/16 05:41 APTT 68.0 Seconds (26.0-36.0) H 12/11/16 20:20 Heparin Anti-Xa, Unfract 1.01 IU/mL (0.30-0.70) H* 12/09/16 17:02 Sodium 135 mEq/L (136-145) L 12/14/16 05:41 Glucose 245 mg/dL (70-99) H 12/14/16 05:41 POC Glucose 301 (58-89) H 12/13/16 20:41 Hemoglobin A1c 8.7 % (-5.6) H 12/10/16 05:02 - VTE Documentation of Mechanical Device: Venous foot pump, device Consult Discharge Plan - Plan Additional Instructions: Follow-up with PCP for hyperglycemia. Referrals: Maria Ines Peña, GRAIN FARMWORKER [Advanced Practice Nurse] - (patient is going to [facility]) NONE,PCP [Primary Care Provider] - Prescriptions: OxyCODONE Immed Rel [Roxicodone 5 MG] 5 mg PO Q3H PRN #10 tab PRN Reason: Pain OxyCODONE/APAP 7.5/325 [Percocet 7.5/325 MG] 1 each PO Q6HR PRN #10 tab PRN Reason: Moderate to Severe Pain (4-10)
[2016-12-14] MEDS: Aspirin Enteric Coated 81 MG Tablet PO SCH (08:39)
[2016-12-14] MEDS: Nicotine 21 MG PATCH.TD24 TD SCH (08:39)
[2016-12-14] MEDS: Insulin LISPRO 300 UNITS/3 ML VIAL SQ SCH ×4 (08:40→12:39)
[2016-12-14] MEDS: Insulin DETEMIR 100 UNIT/ML X5UNITS SQ SCH (08:48)
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
--- NOTE | 2016-12-14 11:53 | Physician Discharge Referral ---
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 (5) Diabetes mellitus Priority: Primary Status: Chronic (6) Anemia Priority: Primary Status: Acute Prognosis: Fair Aware of Diagnosis: Patient Aware of Prognosis: Patient - Transfer Medications Prescriptions: OxyCODONE/APAP 7.5/325 [Percocet 7.5/325 MG] 1 each PO Q6HR PRN #10 tab PRN Reason: Moderate to Severe Pain (4-10) Metformin HCl [Metformin HCl ER] 500 mg PO BID #60 [id number] OxyCODONE Immed Rel [Roxicodone 5 MG] 5 mg PO Q3H PRN #10 tab PRN Reason: Pain OxyCODONE Immed Rel [Roxicodone 5 MG] 5 mg PO Q6H PRN #20 tab PRN Reason: Pain Home Medications: Aspirin [Lo-Dose Aspirin EC] 81 mg PO DAILY 12/01/16 [History] Acetaminophen [Tylenol] 650 mg PO Q6HR PRN tab 12/12/16 [Rx] Atorvastatin [Lipitor] 20 mg PO HS tab 12/12/16 [Rx] Metoprolol XL (24 HR) Succ [Toprol Xl] 25 mg PO DAILY 12/12/16 [Rx] Nicotine Patch [Nicoderm] 21 mg TD DAILY 12/12/16 [Rx] OxyCODONE Immed Rel [Roxicodone 5 MG] 5 mg PO Q3H PRN #10 tab 12/12/16 [Rx] OxyCODONE/APAP 7.5/325 [Percocet 7.5/325 MG] 1 each PO Q6HR PRN #10 tab [Rx] Rivaroxaban [Xarelto] 20 mg PO DAILY@1700 tab 12/12/16 [Rx] Aspirin Enteric Coated [Aspirin EC] 81 mg PO DAILY 12/14/16 [Rx] Atorvastatin [Lipitor] 20 mg PO HS tab 12/14/16 [Rx] Docusate [Colace] 100 mg PO BID 12/14/16 [Rx] MOM Conc [MILK OF MAGNESIA conc] 5 ml PO HS PRN 12/14/16 [Rx] Metformin HCl [Metformin HCl ER] 500 mg PO BID #60 [id number] 12/14/16 [Rx] Metoprolol XL (24 HR) Succ [Toprol Xl] 25 mg PO DAILY 12/14/16 [Rx] Nicotine Patch [Nicoderm] 21 mg TD DAILY 12/14/16 [Rx] OxyCODONE Immed Rel [Roxicodone 5 MG] 5 mg PO Q6H PRN #20 tab 12/14/16 [Rx] Rivaroxaban [Xarelto] 20 mg PO DAILY@1700 tab 12/14/16 [Rx] Temazepam [Restoril] 15 mg PO HS PRN 12/14/16 [Rx] Allergies/Adverse Reactions: Allergies No Known Allergies Allergy (Verified 12/01/16 06:06) - Respiratory Orders Smoking Cessation: Smoking cessation has been advised. For more information, call the [place] Tobacco Quit Line at 2-158-TFZH-NOW. - Advance Directives Code Status: Full Code - Mobility Orders Ambulate - Rehabiliation Orders Rehab Potential: Fair - Diet Orders No Added Salt (SHARLA), Cardiac CERTIFICATION: I certify that the transfer of the above named patient to an Extended Care Facility is necessary for the continuing treatment of the diagnosis listed. The above information is true and accurate reflection of patient's current condition. Confidential - Redisclosure prohibited without a patient's written consent.
[2016-12-14 15:20] VITALS: BP 134/83
--- NOTE | 2016-12-16 08:23 | Event Note ---
Date of Encounter: 12/13/16 Time of Encounter: 12:30 Right Arm - dressing removed - approx 3cc of bloody drainage accumulated in drain; drain area cleansed with betadine. Sterile scalpel used to make small incision, allowing for drain to be removed. Using sterile hemostat, drain was successfully removed from right upper arm without complication. Wound was cleansed and 3 jacqui placed. Opsite and pressure dressing applied.
== END 2016-12-14 16:31 | DRG 493 ==
LOC: 2ANU 13:42 → EMEROO 13:42 → SUATTDRO 16:44 → 2ANU 17:57 → 3NENU 12-12 17:42
PROVIDERS: ADMIT Internal Medicine; ATTEND Internal Medicine

== ENCOUNTER 2017-04-06 15:19 | Inpatient (IN) ==
--- NOTE | 2017-04-06 15:56 | Emergency Department Note ---
Disposition Clinical Impression: Abdominal pain Qualifiers: Abdominal location: left upper quadrant Qualified Code(s): R10.12 - Left upper quadrant pain Disposition: Admitted As Inpatient Condition: Fair General Adult HPI - General Chief complaint: ED Abdominal Pain Stated complaint: abd pain, hx pancreatitis Time Seen by Provider: 04/06/17 15:23 Source: patient Mode of arrival: ambulatory Limitations: no limitations Nursing Notes Reviewed: Yes Vital Signs Reviewed: Yes - History of Present Illness HPI Narrative: Patient is a 57-year-old female with a past medical history of SC with stent placement in 2013 and pancreatitis secondary to alcoholism 3 years ago presenting with complaint of epigastric pain that started 2 weeks ago associated with nausea and vomiting over the past 4 days and diarrhea. Patient states that the pain is epigastric and radiates down into the left side of her abdomen, she describes it as a aching pain that is 8/10, and is worsened by movement and eating and improves with remaining still. She has not taken any medicines at home for this. States she has also had multiple episodes of nausea and vomiting over the past 4 days mainly when she eats solid foods however she is able to keep liquids down. Vomitus is nonbilious and nonbloody. Patient is also complaining of diarrhea and constipation. She states that she was constipated for about 4 days and she will have episodes of diarrhea and the diarrhea recently has appeared black. Patient denies any fever, chills, chest pain, shortness of breath, flank pain, dysuria. She also states that she quit drinking alcohol after her last bout of pancreatitis she has not had any alcohol since then. Pain Scale: 8 - Related Data Home Medications Medication Instructions Recorded Confirmed Aspirin [Lo-Dose Aspirin EC] 81 mg PO DAILY 12/01/16 04/07/17 Albuterol Sulfate [Proair Hfa] 1 puff IH Q4H PRN 03/24/17 04/07/17 traZODone [TraZODone] 50 mg PO HS 03/24/17 04/07/17 Gabapentin [Neurontin] 600 mg PO TID 04/07/17 04/07/17 Tiotropium [Spiriva] 1 puff IH DAILY 04/07/17 04/07/17 metFORMIN [Glucophage] 500 mg PO BID 04/07/17 04/07/17 Previous Rx's Medication Instructions Recorded Atorvastatin [Lipitor] 20 mg PO HS tab 12/12/16 Metoprolol XL (24 HR) Succ [Toprol 25 mg PO DAILY 12/12/16 Xl] Rivaroxaban [Xarelto] 20 mg PO DAILY@1700 tab 12/12/16 Allergies Allergy/AdvReac Type Severity Reaction Status Date / Time No Known Allergies Allergy Verified 04/06/17 15:35 Review of Systems: Constitutional: No fever, no chill Vision: No blurred vision ENT: No rhinorrhea Respiratory: chronic cough Cardiac: No chest pain or palpitations Allergic: No allergies : No blood in urine, no dysuria GI: Positive for nausea, vomiting, diarrhea, constipation, and abdominal pain Hematologic: No bruising Dermatologic: No skin rash Musculoskeletal: No pain in the extremities Neuro: No numbness of the extremities All systems ED: reviewed and negative except as stated. Review of Systems: As Per HPI Past Medical History - Past Medical History Attestation: Yes The following information was validated with the patient. 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 EYES: PERRL, no scleral icterus. NOSE: The nose is normal in appearance without rhinorrhea RESP: Normal chest excursion with respiration; breath sounds clear and equal bilaterally; no wheezes, rhonchi, or rales CARD: Tachycardic, regular rhythm, without murmurs, rub or gallop ABD: Non-distended; epigastric area is tender, without rigidity, rebound or guarding RECTAL: No bright red blood on external exam or in the rectal vault. No stool palpated. No melena. SKIN: Normal for age and race; warm and dry; no apparent lesions - General General appearance: alert, in no apparent distress Course Course Narrative: Patient is a 57-year-old female with a past medical history panic attacks STEMI requiring one stent. She did not say with epigastric pain and nausea and vomiting with associated diarrhea is black. Physical exam appreciates epigastric tenderness and tachycardia. Plan is to treat the patient's pain we will give her fluids and antiemetic while she is here. Also order basic labs on patient including a H&H, bmp, UA, and lipase. - Reevaluation(s) Reevaluation #1: Patient's labs came back unremarkable. Her lipase was normal. Proceed with imaging since we do not have a etiology of the patient's pain at this time. Dr. Chang will take over as primary provider for this patient as it is the end of my shift. He has been overseeing the patient's care as well. Time: 17:38 Vital Signs Temperature 98.4 F 04/06/17 15:33 Pulse Rate 108 04/06/17 15:33 Respiratory Rate 16 04/06/17 15:33 Blood Pressure 118/75 04/06/17 15:33 O2 Sat by Pulse Oximetry 93 04/06/17 15:33 Temperature 99.1 F 04/08/17 19:42 Pulse Rate 79 04/08/17 19:42 Respiratory Rate 16 04/08/17 19:42 Blood Pressure 131/74 04/08/17 19:42 O2 Sat by Pulse Oximetry 94 04/08/17 19:42 Oxygen Delivery Oxygen Delivery Room Air Medical Decision Making - Medical Records Medical records reviewed: Yes I reviewed the patient's medical records. - Lab Data Lab results reviewed: Yes I reviewed the patient's lab results. Result diagrams: 04/08/17 05:42 04/07/17 04:22 Lab Results 04/06/17 04/06/17 04/06/17 Range/Units 16:26 16:26 16:26 Hgb 12.4 (11.5-15.4) g/dL Hct 39.9 (35.3-44.9) % Sodium 134 L (136-145) mEq/L Potassium 4.1 (3.5-4.5) mEq/L Chloride 101 (98-109) mEq/L Carbon Dioxide 21 (19-29) mEq/L BUN 13 (7-20) mg/dL Creatinine 0.92 (0.57-1.11) mg/dL Est GFR ( Amer) > 60 (> 60) Est GFR (Non-Af Amer) > 60 (> 60) BUN/Creatinine Ratio 14 (6-26) Glucose 342 H (70-99) mg/dL Calculated Osmolality 292 (280-300) Calcium 9.9 (8.6-10.8) mg/dL Troponin I 0.01 (0-0.03) ng/mL B-Natriuretic Peptide (0-100) pg/mL Lipase 52 (8-78) Units/L Urine Color (Yellow) Urine Clarity (Clear) Urine pH (5.0-8.0) pH Units Ur Specific [place] (1.010-1.025) Urine Protein (Neg-Trace) mg/dL Urine Glucose (UA) (Normal) mg/dL Urine Ketones (Negative) mg/dL Urine Blood (Negative) Urine Nitrite (Negative) Urine Bilirubin (Negative) Urine Urobilinogen (Normal) mg/dL Ur Leukocyte Esterase (Negative) Urine Microscopic RBC (0-3) per hpf Urine Microscopic WBC (0-3) per hpf Ur Squamous Epith Cells (None-Few) per lpf Urine Bacteria (None-Few) per hpf Hyaline Casts (None-Few) per lpf Ur Culture Indicated? (NO) Stool Occult Blood (Negative) 04/06/17 04/06/17 04/06/17 Range/Units 16:44 17:42 17:46 Hgb (11.5-15.4) g/dL Hct (35.3-44.9) % Sodium (136-145) mEq/L Potassium (3.5-4.5) mEq/L Chloride (98-109) mEq/L Carbon Dioxide (19-29) mEq/L BUN (7-20) mg/dL Creatinine (0.57-1.11) mg/dL Est GFR ( Amer) (> 60) Est GFR (Non-Af Amer) (> 60) BUN/Creatinine Ratio (6-26) Glucose (70-99) mg/dL Calculated Osmolality (280-300) Calcium (8.6-10.8) mg/dL Troponin I (0-0.03) ng/mL B-Natriuretic Peptide 105 H (0-100) pg/mL Lipase (8-78) Units/L Urine Color Dark Yellow (Yellow) Urine Clarity Cloudy A (Clear) Urine pH 6.5 (5.0-8.0) pH Units Ur Specific [place] > 1.030 H (1.010-1.025) Urine Protein 100 H (Neg-Trace) mg/dL Urine Glucose (UA) >=1000 H (Normal) mg/dL Urine Ketones Negative (Negative) mg/dL Urine Blood Moderate H (Negative) Urine Nitrite Positive A (Negative) Urine Bilirubin Small H (Negative) Urine Urobilinogen Normal (Normal) mg/dL Ur Leukocyte Esterase Small H (Negative) Urine Microscopic RBC 3-5 H (0-3) per hpf Urine Microscopic WBC TNTC H (0-3) per hpf Ur Squamous Epith Cells Many H (None-Few) per lpf Urine Bacteria Many H (None-Few) per hpf Hyaline Casts Few (None-Few) per lpf Ur Culture Indicated? YES A (NO) Stool Occult Blood Negative (Negative) - Radiology Data Radiology results reviewed: Yes I reviewed the patient's radiology results. Abdomen/Pelvis CT 04/06/17 17:22 IMPRESSION: Wall of the proximal stomach is edematous and thickened. Adjacent inflammatory change and ill-defined free fluid. Gastrohepatic ligament, periportal, and left upper abdomen adenopathy. Small amount of free fluid also noted about the distal pancreatic body and tail. Changes are most prominent about the proximal stomach. Findings may be infectious or inflammatory and represent severe gastritis with penetrating ulcer however neoplasm cannot be excluded. Recommend follow-up with endoscopy. Given pancreatic findings, component of acute pancreatic also possibility and recommend correlation with amylase and lipase levels. Tiny focus of gas noted near the upper stomach near the gastroesophageal junction. Is uncertain if this is within the lumen or wall of the stomach. No free air. Ill-defined soft tissue attenuation within the left groin centered about the proximal left common femoral artery with associated skin thickening. Margins appear slightly spiculated and findings findings are increased since the previous CT. While this may represent increasing scar post surgical change, neoplasm is also consideration. 1.1 x 0.6 cm cystic lesion in the pancreatic body. Recommend further evaluation with MRI pancreas with contrast. D/ / Marybel Ragsdale MD / Marybel Ragsdale MD Interpreting Provider: Marybel Ragsdale MD Abdomen MRI 04/07/17 07:38 IMPRESSION: 1.6 cm cystic lesion in the body of the pancreas with nonenhancing internal debris is favored to represent a pseudocyst. Increasing fluid between the gastric fundus and pancreatic tail. Findings could represent acute pancreatitis, could be secondary to severe gastritis or due to gastric ulcer. Consider endoscopy for further evaluation. Upper abdominal lymphadenopathy is likely reactive. Hepatic steatosis. D/ / Joshua Saleh MD / Joshua Saleh MD Interpreting Provider: Joshua Saleh MD - EKG Data EKG #1 EKG attestation: Yes I reviewed and interpreted this EKG. Attestation Statement - Attestation Attestation: I examined this patient and my medical decision-making was reviewed with the Resident Physician. I agree with the documented findings, disposition and treatment plan as described except to the extent set forth below. Moderately tender. Lipase normal, only one prior bout of pancreatitis so lipase should be elevated if this was pancreatitis. CT ordered, shows thickening of gastric wall, doubt gastritis d/t lack of vomiting; penetrating ulcer or malignancy more likely. Analgesics were effective, but have worn off - repeat dose ordered. Accepted by hospitalist for admission for pain control and inpatient workup.
[2017-04-06] MEDS ORDERED: Ondansetron 4 MG/2 ML VIAL IVP ONE (16:11)
[2017-04-06] MEDS ORDERED: *HR* HYDROmorphone (PF) 1 MG/ML SYRINGE IVP ONE (16:29)
[2017-04-06 16:34] LABS: Hematocrit 39.9 % (35.3-44.9); Hemoglobin 12.4 g/dL (11.5-15.4)
[2017-04-06] MEDS: 0.9 % Sodium Chloride 1,000 ML IVC SCH ×3 (16:44→20:29)
[2017-04-06 16:47] LABS: BUN/Creatinine Ratio 14 (6-26); Blood Urea Nitrogen 13 mg/dL (7-20); Calcium 9.9 mg/dL (8.6-10.8); Carbon Dioxide 21 mEq/L (19-29); Chloride 101 mEq/L (98-109); Glucose 342 mg/dL (70-99); Lipase 52 Units/L (8-78); Osmolality,Calculated 292 (280-300); Potassium 4.1 mEq/L (3.5-4.5); Sodium 134 mEq/L (136-145); eGFR For African Americans > 60 (> 60); eGFR For Non-African Americans > 60 (> 60)
[2017-04-06 17:50] LABS: Bilirubin,Urine Small (Negative); Blood,Urine Moderate (Negative); Clarity,Urine Cloudy (Clear); Color,Urine Dark Yellow (Yellow); Glucose,Urine (UA) >=1000 mg/dL (Normal); Ketones,Urine Negative (Negative); Leukocyte Esterase,Urine Small (Negative); Nitrite,Urine Positive (Negative); PH,Urine 6.5 pH Units (5.0-8.0); Protein,Urine 100 mg/dL (Neg-Trace); Specific Gravity,Urine > 1.030 (1.010-1.025); Urobilinogen,Urine Normal (Normal)
[2017-04-06 17:52] LABS: Bacteria,Urine Many per hpf (None-Few); Hyaline Casts,Urine Few per lpf (None-Few); Squamous Epithelial Cell,Urine Many per lpf (None-Few); WBC,Urine TNTC per hpf (0-3)
[2017-04-06] MEDS ORDERED: *HR* HYDROmorphone (PF) 1 MG/ML SYRINGE IVP STA (18:58)
[2017-04-06] MEDS ORDERED: cefTRIAXone 1,000 MG in Water for inj. (sterile) 10 ML IVP ONE (20:00)
[2017-04-06] MEDS ORDERED: Acetaminophen 325 MG TABLET PO PRN (20:01)
[2017-04-06] MEDS ORDERED: Naloxone 0.4 MG/ML INJ IVP PRN (20:01)
[2017-04-06] MEDS ORDERED: Ondansetron ODT 4 MG TAB.RAPDIS SL PRN (20:01)
[2017-04-06] MEDS ORDERED: Dextrose Gel 15 GM PO PRN ×2 (20:04)
[2017-04-06] MEDS ORDERED: D5% in Water 1,000 ML IVC PRN (20:04)
[2017-04-06] MEDS ORDERED: *HR* Dextrose 50 % in Water (Syg) 50 ML SYRINGE IVP PRN (20:04)
[2017-04-06] MEDS: Pantoprazole 40 MG VIAL IVP SCH (20:30)
--- NOTE | 2017-04-06 20:38 | Internal Med History&Physical ---
Date of Encounter: 04/06/17 Time of Encounter: 19:30 Assessment and Plan (1) Abdominal pain Current visit: Yes Status: Acute Patient has abdominal pain. Lipase negative. CT of abdomen suspected gastric ulcer or malignancy. - Place patient on nothing by mouth, IV fluid - IV PPI. - Pain control with morphine IV. - GI consult in a.m. - Symptomatic control for nausea with Zofran - Place patient on Cipro and Flagyl IV as CT abdominal shows possible infection/ inflammation Qualifiers: Abdominal location: epigastric Qualified Code(s): R10.13 - Epigastric pain (2) CHF (congestive heart failure) Current visit: No Status: Chronic Appears euvolemic. Qualifiers: Congestive heart failure type: combined Congestive heart failure chronicity : chronic Qualified Code(s): I50.42 - Chronic combined systolic (congestive) and diastolic (congestive) heart failure (3) Tobacco abuse Current visit: No Status: Chronic Smoking cessation education. Patient refused nicotine patch (4) CAD (coronary artery disease) Current visit: No Status: Chronic Denies chest pain. EKG shows 2 3 aVF Q-wave, which is old and already on EKG on 03/24/17. Troponin negative. Continue closely monitor patient. Qualifiers: Coronary Disease-Associated Artery/Lesion type: [place] artery [place] vs. transplanted heart: [place] heart Associated angina: without angina Qualified Code(s): I25.10 - Atherosclerotic heart disease of [place] coronary artery without angina pectoris (5) Diabetes mellitus Current visit: No Status: Chronic place patient on sliding scale coverage Qualifiers: Diabetes mellitus type: type 2 Diabetes mellitus complication status: with circulatory complication Diabetes mellitus complication detail: with peripheral angiopathy without gangrene Diabetes mellitus skilled nursing insulin use : without rat exterminator use Qualified Code(s): E11.51 - Type 2 diabetes mellitus with diabetic peripheral angiopathy without gangrene (6) COPD (chronic obstructive pulmonary disease) Current visit: Yes Status: Acute Stable. No wheezing. Continue DuoNeb when necessary Qualifiers: COPD type: emphysema Emphysema type: other Qualified Code(s): J43.8 - Other emphysema (7) DVT prophylaxis Current visit: Yes Status: Acute Patient was on xarelto for PVD. On hold now for possible EGD. EPCD placed (8) UTI (urinary tract infection) Current visit: Yes Status: Acute Urinalysis showed UTI. Patient on Cipro now. Follow up urine culture results. Qualifiers: Urinary tract infection type: acute cystitis Hematuria presence: without hematuria Qualified Code(s): N30.00 - Acute cystitis without hematuria Internal Medicine - H&P: HPI Chief complaint: Abdominal pain Admitted From: Home Plans for Post Hospital Care: Home History of present illness: Ms. Hendrix is a 57 year old female with history of COPD, CHF, history of pancreatitis due to alcoholism, PAD on xarelto, diabetes, present to ER for abdominal pain for 2 weeks. Patient said that the pain is located on the upper abdomen and epigastric area, throbbing, constant, 8-9 out of 10. Patient denies fever. Patient has nausea and vomited 3 times, her vomiting are yellowish or fluid, no blood in it. Patient has diarrhea for 2 weeks, is a watery and black stool, no fresh blood. She said she has 5-10 times bowel movement today. In emergency room, CT abdomen shows suspected gastric ulcer or malignancy. Patient was admitted for further management. Past Med Surg Social Fam HX - Past Medical History Medical history: CHF, COPD, coronary artery disease, DVT, GERD, hyperlipidemia, hypertension, myocardial infarction, peripheral artery disease, renal disease, other Psychiatric history: anxiety - Past Surgical History Surgical History: angioplasty/stent, cholecystectomy - Social History Smoking Status: Current every day smoker Smokeless Tobacco Status: No Alcohol use: none Drug use: none - Family History Mother Living Status: Father Living Status: Hx Family Cardiac Disorders: Yes ([place]) Sister Living Status: Hx Family Cancer: Yes (cervical, ovarian) Brother Living Status: Hx Family Cardiac Disorders: Yes ([place]) Internal Medicine - H&P: Meds Aspirin [Lo-Dose Aspirin EC] 81 mg PO DAILY 12/01/16 [History] Atorvastatin [Lipitor] 20 mg PO HS tab 12/12/16 [Rx] Metoprolol XL (24 HR) Succ [Toprol Xl] 25 mg PO DAILY 12/12/16 [Rx] Rivaroxaban [Xarelto] 20 mg PO DAILY@1700 tab 12/12/16 [Rx] Metformin HCl [Metformin HCl ER] 500 mg PO BID #60 [id number] 12/14/16 [Rx] Albuterol Sulfate [Proair Hfa] 1 puff IH Q4H PRN 03/24/17 [History] traZODone [TraZODone] 50 mg PO HS 03/24/17 [History] 3 Allergy/AdvReac Type Severity Reaction Status Date / Time No Known Allergies Allergy Verified 04/06/17 15:35 All Systems PM: A 10-system review of systems was performed and is negative for pertinent findings except as documented above in the HPI. - Constitutional Vitals: Temp Pulse Resp BP Pulse Ox 98.4 F 102 16 141/78 96 04/06/17 15:33 04/06/17 19:00 04/06/17 19:59 04/06/17 19:59 04/06/17 19:00 General appearance: Present: A&O X 3, no acute distress, answers questions appropriately - Head Head exam: Present: atraumatic, normocephalic - Eye Eye exam: Present: PERRL, conjuntiva pink, sclera anicteric Pupils: Present: PERRL - Neck Neck exam general surgery: Present: supple, trachea midline. Absent: lymphadenopathy - Respiratory Respiratory exam: Present: CTAB. Absent: accessory muscle use, rales, rhonchi, wheezes - Cardiovascular Cardiovascular exam: Present: RRR, +S1, +S2. Absent: diastolic murmur, gallop, rubs, systolic murmur - GI/Abdominal GI/Abdominal exam: Present: normal bowel sounds, soft, tenderness (Tenderness in 4Q, with guarding but no rebound), no peritoneal signs. Absent: distended - Extremities Exam Extremities exam: Present: warm, radial pulses palpable and symmetrical. Absent : calf tenderness, cyanotic, pedal edema - Neurological Exam Neurological exam: Present: CN II-XII intact, oriented X3, no focal deficits. Absent: pronater drift, facial droop, speech deficit - Skin Skin exam: Present: dry, intact Internal Med - H&P Results - Labs CBC & Chem 7: 04/06/17 16:26 04/06/17 16:26 - EKG Data -: EKG Interpreted by Myself (EKG shows II, III, AVF Q waves, but no significant change compared 03/24) EKG shows normal: sinus rhythm Rate: normal (Pt also has negative troponin) - EKG Data Prior EKG available for review: yes When compared to previous EKG: there is no significant change Interpretation IM: other (II III AVF Q wave)
[2017-04-06] MEDS: *HR* Morphine 2 MG/ML SYRINGE IVP PRN (20:50)
[2017-04-06 22:20] LABS: Basophils # 0.1 K/mcL (0.0-0.2); Basophils % 0.4 %; Eosinophils # 0.4 K/mcL (0.0-0.6); Eosinophils % 2.4 %; Hematocrit 31.1 % (35.3-44.9); Immature Granulocytes % 0.5 % (0-4); Immature Platelets 7.6 % (1.1-6.1); Lymphocytes # 2.3 K/mcL (0.6-4.6); Lymphocytes % 15.9 %; Mean Corpuscular HGB Conc 31.8 g/dL (31.6-35.5); Mean Corpuscular Hemoglobin 28.9 pg (28.0-33.3); Mean Corpuscular Volume 90.9 fL (83.0-100.0); Mean Platelet Volume 11.3 fL (9.4-12.4); Monocytes # 0.8 K/mcL (0.0-1.3); Monocytes % 5.5 %; Neutrophils # 10.8 K/mcL (1.6-8.9); Platelet Count 287 K/mcL (140-400); Red Blood Count 3.42 M/mcL (3.82-4.97); Red Cell Distribution Width 14.6 % (11.5-14.5); Segmented Neutrophils % 75.3 %
[2017-04-06 22:21] LABS: Hemoglobin 9.9 g/dL (11.5-15.4)
[2017-04-07] MEDS: MetroNIDAZOLE 500 MG/100 ML 500 MG/100 ML BAG IVPB SCH ×3 (00:04→15:58)
[2017-04-07] MEDS: Insulin LISPRO 300 UNITS/3 ML VIAL SQ SCH ×5 (00:08→23:18)
[2017-04-07] MEDS: *HR* Morphine 2 MG/ML SYRINGE IVP PRN ×7 (00:42→23:18)
[2017-04-07 04:44] LABS: Basophils # 0.1 K/mcL (0.0-0.2); Basophils % 0.5 %; Eosinophils # 0.4 K/mcL (0.0-0.6); Eosinophils % 3.2 %; Immature Granulocytes % 0.5 % (0-4); Lymphocytes # 2.2 K/mcL (0.6-4.6); Lymphocytes % 17.1 %; Mean Corpuscular HGB Conc 31.3 g/dL (31.6-35.5); Mean Corpuscular Hemoglobin 28.6 pg (28.0-33.3); Mean Corpuscular Volume 91.4 fL (83.0-100.0); Mean Platelet Volume 11.2 fL (9.4-12.4); Monocytes # 0.7 K/mcL (0.0-1.3); Monocytes % 5.5 %; Neutrophils # 9.4 K/mcL (1.6-8.9); Platelet Count 283 K/mcL (140-400); Red Cell Distribution Width 14.8 % (11.5-14.5); Segmented Neutrophils % 73.2 %
[2017-04-07 04:56] LABS: INR 1.3; Prothrombin Time 14.4 Seconds (9.4-12.1)
[2017-04-07] MEDS: Pantoprazole 40 MG VIAL IVP SCH ×2 (05:00→17:51)
[2017-04-07 05:01] LABS: Alanine Aminotransferase 9 Units/L (0-55); Albumin/Globulin Ratio 0.4 (1.1-2.2); Alkaline Phosphatase 100 Units/L (38-126); Aspartate Amino Transferase 9 Units/L (5-34); BUN/Creatinine Ratio 13 (6-26); Bilirubin,Total 0.3 mg/dL (0.2-1.2); Blood Urea Nitrogen 9 mg/dL (7-20); Calcium 8.8 mg/dL (8.6-10.8); Carbon Dioxide 21 mEq/L (19-29); Chloride 109 mEq/L (98-109); Globulin 4.5 g/dL (2.4-3.5); Glucose 114 mg/dL (70-99); Magnesium 1.7 mg/dL (1.6-2.6); Osmolality,Calculated 284 (280-300); Potassium 3.7 mEq/L (3.5-4.5); Sodium 137 mEq/L (136-145); Total Protein 6.5 g/dL (6.0-8.3); eGFR For African Americans > 60 (> 60); eGFR For Non-African Americans > 60 (> 60)
[2017-04-07] MEDS: 0.9 % Sodium Chloride 1,000 ML IVC SCH (09:02)
--- NOTE | 2017-04-07 10:10 | Gastroenterology Consult Note ---
<Jostin Del Valle - Last Filed: 04/07/17 10:04> Date of Encounter: 04/07/17 Time of Encounter: 10:04 - Assessment and plan (1) Abdominal pain Current Visit: Yes Status: Acute Assessment and plan: LUQ pain, sharp on exam hx of N/V and black stool (5 days ago) CT abdomen pelvis concern for gastric malignancy, peptic ulcer disease: there is no free air -MRI abdomen ordered no previous colonoscopy. No EGD at this facility. 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 (4) DVT prophylaxis Current Visit: Yes Status: Acute Assessment and plan: patient was on xeralto for PAD which has been held for 2 days EPCDS (5) Hx of pancreatitis Current Visit: Yes Status: Acute Assessment and plan: hx of pancreatitis Lipase WNL at this visit CT abdomen/pelvis shows 1.1x0.6cm cystic lesion in the pancreatic body and small amount of free fluid in the distal pancreatic body and tail MRI pending. - Time Spent With Patient Total time spent is greater than 50% in coordination of care (as documented) at patient's floor/unit and/or counseling patient: GI History of Present Illness - Data of Consult Patient: new to practice Consult date: 04/07/17 Requesting Physician: Osorio Olson MD - Consult Narrative Reason for consult: CT abdomen gastric ulcer or malignancy History of present illness: Ms. Hendrix is a 57 year old female presented with chief complaint of abdominal pain of 2 weeks. Patient states pain is sharp, throbbing in the right upper quadrant and radiates laterally to the left upper quadrant and down to the left lower quadrant. Pain is worse with food, movement. Patient had vomiting 2 times with yellow fluid without blood 2 days ago. Patient also has diarrhea starting 2 weeks ago with black stools 5 days ago. Her last bowel movement was 5 days ago. Patient has a history of pancreatitis. Patient is on Zarontin for arterial blood clot in the left leg. She has not taken 02 for the last 2 days. She has never had a colonoscopy. States she has EGD in the past to be evaluate for gastritis, which was done at [facility]. During admission patient had CT abdomen/pelvis which was proximal stomach edematous and thickened , gastrohepatic ligament. Portal, and left upper abdominal adenopathy. Small amounts of free fluid in the distal pancreatic body and tail. Gas noted near the upper stomach into gastroesophageal junction. Past Med Surg Social Fam HX - Past Medical History Medical history: CHF, COPD, coronary artery disease, DVT, GERD, hyperlipidemia, hypertension, myocardial infarction, peripheral artery disease, renal disease, other Psychiatric history: anxiety - Past Surgical History Surgical History: angioplasty/stent, cholecystectomy - Social History Smoking Status: Current every day smoker Packs per day: 1 Smokeless Tobacco Status: No Alcohol use: none Drug use: none - Family History Mother Living Status: Hx Family Cancer: Yes (ovarian) Father Living Status: Hx Family Cardiac Disorders: Yes ([place]) Sister Living Status: Hx Family Cancer: Yes (cervical, ovarian) Brother Living Status: Hx Family Cardiac Disorders: Yes ([place]) - Endocrine Additionall Comment: Constitutional: Denies fever, reports chills HEENT: Denies headache, vision changes, neck pain, sore throat, rhinorrhea Heart: Denies chest pain palpitations Lungs: Denies shortness of breath cough Abdomen: Reports abdominal pain, nausea, vomiting, diarrhea. Black stools Back: Denies back pain Kidney: Denies dysuria, hematuria Skin: warm and dry Extremities: Denies swelling, pain Neuro: Denies numbness, and tingling - Constitutional Vitals: Temp Pulse Resp BP Pulse Ox 98.1 F 84 14 124/78 93 04/07/17 06:44 04/07/17 06:44 04/07/17 06:44 04/07/17 06:44 04/07/17 08:24 - Other Additional findings: General: Pleasant without distress HEENT: Head atraumatic, normocephalic, EOMI, PERRL, neck nontender to palpation , absent lymphadenopathy, Moist Mucous Membranes, Heart: Regular rate and rhythm with no murmur Lungs: Clear to auscultation bilaterally Abdomen: Soft tender LUQ, non distended positive bowel sounds. Skin: warm and dry Extremities: Absent pedal edema, Neuro: alert oriented 3 Vascular: Pedal and radial pulses 2 out of 4 Results - Labs CBC & Chem 7: 04/07/17 04:22 04/07/17 04:22 Labs: Last Result Calcium 8.8 mg/dL (8.6-10.8) 04/07/17 04:22 Troponin I 0.01 ng/mL (0-0.03) 04/06/17 16:26 Stool Occult Blood Negative (Negative) 04/06/17 16:44 Entire Visit Hgb 10.0 g/dL (11.5-15.4) L 04/07/17 04:22 Hct 32.0 % (35.3-44.9) L 04/07/17 04:22 PT 14.4 Seconds (9.4-12.1) H 04/07/17 04:22 Total Bilirubin 0.3 mg/dL (0.2-1.2) 04/07/17 04:22 AST 9 Units/L (5-34) 04/07/17 04:22 ALT 9 Units/L (0-55) 04/07/17 04:22 Lipase 52 Units/L (8-78) 04/06/17 16:26 - ABG ABG results: PT/INR, D-dimer PT 14.4 Seconds (9.4-12.1) H 04/07/17 04:22 Consult Discharge Plan - Plan Referrals: Vicky White, RISK MANAGEMENT PROFESSIONAL [Primary Care Provider] - <Humphrey Mo - Last Filed: 04/07/17 17:52> Date of Encounter: 04/07/17 Time of Encounter: 16:00 - Time Spent With Patient Total time spent is greater than 50% in coordination of care (as documented) at patient's floor/unit and/or counseling patient: GI History of Present Illness - Data of Consult Requesting Physician: Osorio Olson MD - Consult Narrative History of present illness: Ms. Hendrix is a 57 year old female - Constitutional Vitals: Temp Pulse Resp BP Pulse Ox 98.2 F 81 14 133/77 99 04/07/17 15:31 04/07/17 15:31 04/07/17 15:31 04/07/17 15:31 04/07/17 15:31 Results - Labs CBC & Chem 7: 04/07/17 04:22 04/07/17 04:22 Labs: Last Result Calcium 8.8 mg/dL (8.6-10.8) 04/07/17 04:22 Troponin I 0.01 ng/mL (0-0.03) 04/06/17 16:26 Stool Occult Blood Negative (Negative) 04/06/17 16:44 Entire Visit Hgb 10.0 g/dL (11.5-15.4) L 04/07/17 04:22 Hct 32.0 % (35.3-44.9) L 04/07/17 04:22 PT 14.4 Seconds (9.4-12.1) H 04/07/17 04:22 Total Bilirubin 0.3 mg/dL (0.2-1.2) 04/07/17 04:22 AST 9 Units/L (5-34) 04/07/17 04:22 ALT 9 Units/L (0-55) 04/07/17 04:22 Lipase 52 Units/L (8-78) 04/06/17 16:26 - ABG ABG results: PT/INR, D-dimer PT 14.4 Seconds (9.4-12.1) H 04/07/17 04:22 - Impressions Impressions Abdomen MRI 04/07/17 07:38 IMPRESSION: 1.6 cm cystic lesion in the body of the pancreas with nonenhancing internal debris is favored to represent a pseudocyst. Increasing fluid between the gastric fundus and pancreatic tail. Findings could represent acute pancreatitis, could be secondary to severe gastritis or due to gastric ulcer. Consider endoscopy for further evaluation. Upper abdominal lymphadenopathy is likely reactive. Hepatic steatosis. D/ / Joshua Saleh MD / Joshua Saleh MD Interpreting Provider: Joshua Saleh MD - Attending Attestation I examined this patient and my medical decision-making was reviewed with the Resident Physician. I agree with the documented findings, disposition and treatment plan as described except to the extent set forth below. 57-year-old white female with abdominal pain and abnormal imaging of the stomach , recommendation is for EGD with possible biopsy of the gastric mass
--- NOTE | 2017-04-07 10:50 | Anesthesia Evaluation PreOp ---
Date of Encounter: 04/07/17 Time of Encounter: 13:50 - Past History Planned Operation: EGD Cardiac History: DC, CHF (chronic), HTN, Hyperlipidemia, Cardiac Stent, Other ( PAD) Pulmonary History: Smoker, COPD GRADER TENDER History: Denies Any Significant HX Other Medical History: Renal (current UTI), Diabetes Type II, Other ( pancreatitis hx d/t alcoholism) Anesthesia History: No Prior Anesthetic Complications, Past Anesthesia (felicita) Alcohol Use: none Drug use: none Medications and Allergies Aspirin [Lo-Dose Aspirin EC] 81 mg PO DAILY 12/01/16 [History] Atorvastatin [Lipitor] 20 mg PO HS tab 12/12/16 [Rx] Metoprolol XL (24 HR) Succ [Toprol Xl] 25 mg PO DAILY 12/12/16 [Rx] Rivaroxaban [Xarelto] 20 mg PO DAILY@1700 tab 12/12/16 [Rx] Albuterol Sulfate [Proair Hfa] 1 puff IH Q4H PRN 03/24/17 [History] traZODone [TraZODone] 50 mg PO HS 03/24/17 [History] Gabapentin [Neurontin] 600 mg PO TID 04/07/17 [History] Tiotropium [Spiriva] 1 puff IH DAILY 04/07/17 [History] metFORMIN [Glucophage] 500 mg PO BID 04/07/17 [History] 3 Allergy/AdvReac Type Severity Reaction Status Date / Time No Known Allergies Allergy Verified 04/06/17 15:35 - Meds/Allergy Pre-op Review Medications Reviewed: Yes Allergies Reviewed: Yes Beta Blockers on Current Med List: No Anesthesia Results - Labs 04/07/17 04:22 04/07/17 04:22 Laboratory Tests 04/07/17 04/07/17 04:22 04:22 Hgb 10.0 L Hct 32.0 L PT 14.4 H INR 1.3 Anesthesia Exam Selected Entries 04/07/17 10:30 Temperature 97.9 F Pulse Rate 81 Respiratory Rate 14 Blood Pressure 130/77 O2 Sat by Pulse Oximetry 96 Weight: 60kg - HEENT Pupil (Motor): EOMI Mallampati: II Teeth: Edentulous Oral Opening: Greater than 3 - GRADER TENDER LOC: Oriented GRADER TENDER Motor: Normal RUE, Normal LUE, Normal RLE, Normal LLE, Normal Face GRADER TENDER Sensory: Normal: RUE, LUE, RLE, LLE, Face - Cardiac Rhythm: Regular Murmur: None - Pulmonary Breath Sounds: bilateral Clear Respiratory Effort: Symmetrical Anesthesia Assess/Plan ASA Score: 4 Modified [place] Scale for Level of Consciousness: Cooperative, oriented, and tranquil Anesthetic Plan: MAC Monitoring Plan: Standard Monitors Recovery Plan: Other (discussed MAC, agrees to proceed)
--- NOTE | 2017-04-07 13:10 | Electrocardiograph Report ---
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
[2017-04-07] MEDS ORDERED: 0.9 % Sodium Chloride 500 ML IVC SCH (13:15)
[2017-04-07] MEDS ORDERED: *HR* Propofol 200 MG/20 ML VIAL IVP ONE (13:39)
[2017-04-07] MEDS ORDERED: *HR* Metoprolol 5 MG/5 ML VIAL IVP ONE (14:39)
[2017-04-07] MEDS: Gabapentin 300 MG CAPSULE PO SCH ×2 (15:59→19:58)
--- NOTE | 2017-04-07 16:00 | Internal Med Progress Note ---
Date of Encounter: 04/07/17 Time of Encounter: 09:30 - Assessment and plan (1) Abdominal pain Current Visit: Yes Status: Acute Assessment and plan: Intractable. Requiring intravenous narcotic medications. Likely from gastritis. High risk for complications. Continue PPI. Will also place patient on Carafate. Holding Xarelto. Patient started on Cipro and Flagyl as patient had leukocytosis and CT scan showed inflammatory changes in the stomach. Qualifiers: Abdominal location: left upper quadrant Qualified Code(s): R10.12 - Left upper quadrant pain (2) Gastritis Current Visit: Yes Status: Acute Assessment and plan: Patient with acute abdominal pain with CT scan findings concerning for gastritis and melena. Continue IV PPI. Nothing by mouth. Upper GI endoscopy planned for later today. Qualifiers: Gastritis type: other gastritis Chronicity: acute Gastritis bleeding: with bleeding Qualified Code(s): K29.01 - Acute gastritis with bleeding (3) CAD (coronary artery disease) Current Visit: Yes Status: Chronic Assessment and plan: Continue atorvastatin and metoprolol. Holding aspirin due to melena Qualifiers: Coronary Disease-Associated Artery/Lesion type: teller artery [place] vs. transplanted heart: teller heart Associated angina: without angina Qualified Code(s): I25.10 - Atherosclerotic heart disease of teller coronary artery without angina pectoris (4) COPD (chronic obstructive pulmonary disease) Current Visit: Yes Status: Chronic Assessment and plan: Not in acute exacerbation. Continue home medications and bronchodilators as needed Qualifiers: COPD type: emphysema Emphysema type: other Qualified Code(s): J43.8 - Other emphysema (5) Diabetes mellitus Current Visit: Yes Status: Chronic Assessment and plan: Blood sugars better controlled today. We will continue to monitor and adjust insulin regimen when patient is started on a diet. Qualifiers: Diabetes mellitus type: type 2 Diabetes mellitus complication status: with circulatory complication Diabetes mellitus complication detail: with peripheral angiopathy without gangrene Diabetes mellitus custodial insulin use : without custodial use Qualified Code(s): E11.51 - Type 2 diabetes mellitus with diabetic peripheral angiopathy without gangrene (6) DVT prophylaxis Current Visit: Yes Status: Acute Assessment and plan: With SCDs. Xarelto on hold due to melena and gastritis. (7) Pancreatic cyst Current Visit: Yes Status: Acute Assessment and plan: Per CT scan. Recommended MRI for better delineation. Patient has normal lipase levels. MRI of the abdomen ordered. Pending clearance from radiology to do this as patient has had prior iliac stents. - Subjective Interval history: Patient continues to have abdominal pain. She visit her pain medications to last for about 3 hours and then pain returns with increased severity. She has not had any hematemesis this morning. Denies any fever or chills. Continues to have nausea. - Constitutional Vitals: Temp Pulse Resp BP Pulse Ox 98.2 F 81 14 133/77 99 04/07/17 15:31 04/07/17 15:31 04/07/17 15:31 04/07/17 15:31 04/07/17 15:31 General appearance: Present: A&O X 3, no acute distress, answers questions appropriately Exam: Moderate distress - Neck Neck exam general surgery: Present: supple, trachea midline. Absent: lymphadenopathy - Respiratory Respiratory exam: Present: CTAB. Absent: accessory muscle use, rales, rhonchi, wheezes - Cardiovascular Cardiovascular exam: Present: RRR, +S1, +S2. Absent: diastolic murmur, gallop, rubs, systolic murmur - GI/Abdominal GI/Abdominal exam: Present: normal bowel sounds, soft, tenderness (Epigastric), no peritoneal signs. Absent: distended - Extremities Exam Extremities exam: Present: warm, radial pulses palpable and symmetrical. Absent : calf tenderness, cyanotic, pedal edema Internal Medicine: Result - Labs CBC & Chem 7: 04/07/17 04:22 04/07/17 04:22 Labs: Short CBC 04/06/17 04/07/17 Range/Units 22:13 04:22 WBC 14.4 H 12.8 H (4.3-11.1) K/mcL Hgb 9.9 L D 10.0 L (11.5-15.4) g/dL Hct 31.1 L 32.0 L (35.3-44.9) % Plt Count 287 283 (140-400) K/mcL Neutrophils # 10.8 H 9.4 H (1.6-8.9) K/mcL BMP 04/07/17 04:22 Sodium 137 Potassium 3.7 Chloride 109 Carbon Dioxide 21 BUN 9 Creatinine 0.72 Glucose 114 H Calcium 8.8 Liver Function 04/07/17 Range/Units 04:22 Total Bilirubin 0.3 (0.2-1.2) mg/dL AST 9 (5-34) Units/L ALT 9 (0-55) Units/L Alkaline Phosphatase 100 (38-126) Units/L Albumin 2.0 L (3.5-5.0) g/dL - ABG Interpretation ABG results: PT/INR, D-dimer PT 14.4 Seconds (9.4-12.1) H 04/07/17 04:22 - VTE Documentation of Mechanical Device: Intermittent pneumatic compression device Consult Discharge Plan - Plan Referrals: Vicky White, PARCEL POST OFFICER [Primary Care Provider] -
[2017-04-07] MEDS: traZODone 50 MG TABLET PO SCH (19:58)
[2017-04-08] MEDS: *HR* Morphine 2 MG/ML SYRINGE IVP PRN ×6 (05:43→21:47)
[2017-04-08] MEDS: Pantoprazole 40 MG VIAL IVP SCH ×2 (05:43→18:18)
[2017-04-08] MEDS: Insulin LISPRO 300 UNITS/3 ML VIAL SQ SCH ×3 (05:51→18:39)
[2017-04-08 06:46] LABS: Basophils % 0.4 %; Eosinophils # 0.3 K/mcL (0.0-0.6); Eosinophils % 2.5 %; Hemoglobin 10.3 g/dL (11.5-15.4); Immature Granulocytes % 0.4 % (0-4); Lymphocytes # 1.2 K/mcL (0.6-4.6); Lymphocytes % 10.4 %; Mean Corpuscular HGB Conc 31.2 g/dL (31.6-35.5); Mean Corpuscular Hemoglobin 28.4 pg (28.0-33.3); Mean Corpuscular Volume 90.9 fL (83.0-100.0); Mean Platelet Volume 12.1 fL (9.4-12.4); Monocytes # 0.6 K/mcL (0.0-1.3); Monocytes % 5.7 %; Platelet Count 283 K/mcL (140-400); Red Blood Count 3.63 M/mcL (3.82-4.97); Red Cell Distribution Width 14.6 % (11.5-14.5); Segmented Neutrophils % 80.6 %
[2017-04-08] MEDS: Gabapentin 300 MG CAPSULE PO SCH ×3 (09:00→21:47)
[2017-04-08] MEDS: Metoprolol XL (24 HR) Succ 25 MG TAB.ER.24H PO SCH (09:00)
[2017-04-08] MEDS: Tiotropium 18 MCG inhalation IH SCH (10:56)
[2017-04-08 12:49] LABS: Adenovirus F 40/41 PCR Not detected (Not detect); Astrovirus PCR Not detected (Not detect); C.difficile Toxin A/B by PCR See reflex test (Not detect); Campylobacter by PCR Not detected (Not detect); Cryptosporidium by PCR Not detected (Not detect); Cyclospora cayetanensis PCR Not detected (Not detect); E. coli O157 by PCR Not detected (Not detect); Entamoeba histolytica PCR Not detected (Not detect); Enteroaggregative E.coli(EAEC) Not detected (Not detect); Enteropathogenic E.coli(EPEC) Not detected (Not detect); Enterotoxigenic E.coli (ETEC) Not detected (Not detect); Giardia lamblia PCR Not detected (Not detect); Norovirus GI/GII PCR Not detected (Not detect); Plesiomonas shigelloides PCR Not detected (Not detect); Rotavirus A PCR Not detected (Not detect); Salmonella PCR Not detected (Not detect); Sapovirus PCR Not detected (Not detect); Shig/EnteroinvasiveE coli EIEC Not detected (Not detect); Shigalike tox-prod E coli STEC Not detected (Not detect); Vibrio PCR Not detected (Not detect); Vibrio cholerae PCR Not detected (Not detect); Yersinia enterocolitica PCR Not detected (Not detect)
[2017-04-08] MEDS: 0.9 % Sodium Chloride 1,000 ML IVC SCH (14:34)
[2017-04-08] MEDS: metroNIDAZOLE 500 MG TABLET PO SCH ×2 (15:42→21:47)
--- NOTE | 2017-04-08 18:38 | Internal Med Progress Note ---
Date of Encounter: 04/08/17 Time of Encounter: 18:36 - Assessment and plan (1) UTI (urinary tract infection) Current Visit: Yes Status: Acute Qualifiers: Urinary tract infection type: acute cystitis Hematuria presence: without hematuria Qualified Code(s): N30.00 - Acute cystitis without hematuria (2) Pancreatitis Current Visit: Yes Status: Acute Qualifiers: Chronicity: acute Acute pancreatitis complication: unspecified Qualified Code(s): K85.90 - Acute pancreatitis without necrosis or infection, unspecified (3) COPD (chronic obstructive pulmonary disease) Current Visit: Yes Status: Chronic Qualifiers: COPD type: emphysema Emphysema type: other Qualified Code(s): J43.8 - Other emphysema (4) Gastritis Current Visit: Yes Status: Acute Qualifiers: Gastritis type: other gastritis Chronicity: acute Gastritis bleeding: with bleeding Qualified Code(s): K29.01 - Acute gastritis with bleeding (5) Pancreatic cyst Current Visit: Yes Status: Acute (6) Diabetes mellitus Current Visit: Yes Status: Chronic Qualifiers: Diabetes mellitus type: type 2 Diabetes mellitus complication status: with circulatory complication Diabetes mellitus complication detail: with peripheral angiopathy without gangrene 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 difficile colitis Current Visit: Yes Status: Acute (8) C. difficile colitis Current Visit: Yes Status: Acute - Subjective Interval history: Admitted for abdominal pain. MRI of abdomen showed evidence of acute pancreatitis as well as pseudocyst 1.6 cm. Gastroenterology is on the case. Urine culture showed gram-positive cocci. Sensitivities pending. Stool shows C. difficile. Flagyl added. Also has history of gastritis. Patient is on Xarelto. Follow CBC CMP amylase lipase.. - Constitutional Vitals: Temp Pulse Resp BP Pulse Ox 98.2 F 84 16 134/81 95 04/08/17 12:31 04/08/17 12:31 04/08/17 12:31 04/08/17 12:31 04/08/17 12:31 General appearance: Present: A&O X 3, no acute distress, answers questions appropriately - Head Head exam: Present: atraumatic, normocephalic - Eye Eye exam: Present: PERRL, conjuntiva pink, sclera anicteric Pupils: Present: PERRL - Neck Neck exam general surgery: Present: supple, trachea midline. Absent: lymphadenopathy - Respiratory Respiratory exam: Present: CTAB. Absent: accessory muscle use, rales, rhonchi, wheezes - Cardiovascular Cardiovascular exam: Present: RRR, +S1, +S2. Absent: diastolic murmur, gallop, rubs, systolic murmur - GI/Abdominal GI/Abdominal exam: Present: normal bowel sounds, soft, no peritoneal signs. Absent: distended, tenderness - Extremities Exam Extremities exam: Present: warm, radial pulses palpable and symmetrical. Absent : calf tenderness, cyanotic, pedal edema - Neurological Exam Neurological exam: Present: CN II-XII intact, oriented X3, no focal deficits. Absent: pronater drift, facial droop, speech deficit - Skin Skin exam: Present: dry, intact Internal Medicine: Result - Labs CBC & Chem 7: 04/08/17 05:42 04/07/17 04:22 Labs: Short CBC 04/08/17 Range/Units 05:42 WBC 11.2 H (4.3-11.1) K/mcL Hgb 10.3 L (11.5-15.4) g/dL Hct 33.0 L (35.3-44.9) % Plt Count 283 (140-400) K/mcL Neutrophils # 9.0 H (1.6-8.9) K/mcL - ABG Interpretation ABG results: PT/INR, D-dimer PT 14.4 Seconds (9.4-12.1) H 04/07/17 04:22 - VTE Documentation of Mechanical Device: Intermittent pneumatic compression device Consult Discharge Plan - Plan Referrals: Vicky White, OPERATOR PREFINISH [Primary Care Provider] -
[2017-04-08] MEDS: Insulin DETEMIR 100 UNIT/ML X5UNITS SQ SCH (21:46)
[2017-04-08] MEDS: traZODone 50 MG TABLET PO SCH (21:47)
[2017-04-09] MEDS: *HR* Morphine 2 MG/ML SYRINGE IVP PRN ×7 (01:01→23:14)
[2017-04-09] MEDS: Insulin LISPRO 300 UNITS/3 ML VIAL SQ SCH ×5 (01:07→23:14)
[2017-04-09] MEDS: 0.9 % Sodium Chloride 1,000 ML IVC SCH (04:20)
[2017-04-09] MEDS: Pantoprazole 40 MG VIAL IVP SCH (06:15)
[2017-04-09] MEDS: metroNIDAZOLE 500 MG TABLET PO SCH ×3 (08:09→21:21)
[2017-04-09] MEDS: Metoprolol XL (24 HR) Succ 25 MG TAB.ER.24H PO SCH (08:09)
[2017-04-09] MEDS: Gabapentin 300 MG CAPSULE PO SCH ×3 (08:09→21:21)
[2017-04-09] MEDS: Tiotropium 18 MCG inhalation IH SCH (11:37)
--- NOTE | 2017-04-09 15:22 | Internal Med Progress Note ---
Date of Encounter: 04/09/17 Time of Encounter: 15:20 - Assessment and plan (1) UTI (urinary tract infection) Current Visit: Yes Status: Acute Qualifiers: Urinary tract infection type: acute cystitis Hematuria presence: without hematuria Qualified Code(s): N30.00 - Acute cystitis without hematuria (2) Pancreatitis Current Visit: Yes Status: Acute Qualifiers: Chronicity: acute Acute pancreatitis complication: unspecified Qualified Code(s): K85.90 - Acute pancreatitis without necrosis or infection, unspecified (3) COPD (chronic obstructive pulmonary disease) Current Visit: Yes Status: Chronic Qualifiers: COPD type: emphysema Emphysema type: other Qualified Code(s): J43.8 - Other emphysema (4) Gastritis Current Visit: Yes Status: Acute Qualifiers: Gastritis type: other gastritis Chronicity: acute Gastritis bleeding: with bleeding Qualified Code(s): K29.01 - Acute gastritis with bleeding (5) Pancreatic cyst Current Visit: Yes Status: Acute (6) Diabetes mellitus Current Visit: Yes Status: Chronic Qualifiers: Diabetes mellitus type: type 2 Diabetes mellitus complication status: with circulatory complication Diabetes mellitus complication detail: with peripheral angiopathy without gangrene Diabetes mellitus long term care administrator insulin use : without nursing home use Qualified Code(s): E11.51 - Type 2 diabetes mellitus with diabetic peripheral angiopathy without gangrene (7) C. difficile colitis Current Visit: Yes Status: Acute (8) C. difficile colitis Current Visit: Yes Status: Acute - Subjective Interval history: Admitted for abdominal pain. MRI of abdomen showed evidence of acute pancreatitis as well as pseudocyst 1.6 cm. Gastroenterology is on the case. Urine culture showed gram-positive cocci. Sensitivities pending. Stool shows C. difficile. Flagyl added. Also has history of gastritis. Patient is on Xarelto. Follow CBC CMP amylase lipase.. 04/09 patient urine culture showed Staphylococcus lugdunesis 100,000 colonies. It is sensitive to Cipro. I will order an echocardiogram to rule out endocarditis infection. Patient abdomen seems better and therefore clear liquids will be started. Patient had DVT in July 2006 but she did not take full anticoagulation for a few months. She has been on anticoagulation for 5 months before Xarelto will be restarted. Apparently endoscopy showed only gastritis without any rebleed and she has been on IV Protonix with no drop in hemoglobin for more than 3 days. We can change her Protonix to by mouth and start her anticoagulation was Xarelto. I encouraged her to talk to her family doctor and see if she can be off anticoagulation in a month. Gastric biopsies pending. - Constitutional Vitals: Temp Pulse Resp BP Pulse Ox 97.8 F 71 16 131/81 95 04/09/17 11:40 04/09/17 11:40 04/09/17 11:40 04/09/17 11:40 04/09/17 11:40 General appearance: Present: A&O X 3, no acute distress, answers questions appropriately Internal Medicine: Result - Labs CBC & Chem 7: 04/08/17 05:42 04/07/17 04:22 - ABG Interpretation ABG results: PT/INR, D-dimer PT 14.4 Seconds (9.4-12.1) H 04/07/17 04:22 - VTE Documentation of Mechanical Device: Intermittent pneumatic compression device Consult Discharge Plan - Plan Referrals: Vicky White, FRONT DESK ASSISTANT [Primary Care Provider] -
--- NOTE | 2017-04-09 16:25 | Anesthesia Evaluation PreOp ---
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 Any Significant HX Other Medical History: Diabetes Type II, Other (Pancreatitis) Anesthesia History: No Prior Anesthetic Complications, Past Anesthesia (GB, EGD) : No Alcohol Use: heavy Drug use: none Medications and Allergies Aspirin [Lo-Dose Aspirin EC] 81 mg PO DAILY 12/01/16 [History] Atorvastatin [Lipitor] 20 mg PO HS tab 12/12/16 [Rx] Metoprolol XL (24 HR) Succ [Toprol Xl] 25 mg PO DAILY 12/12/16 [Rx] Rivaroxaban [Xarelto] 20 mg PO DAILY@1700 tab 12/12/16 [Rx] Albuterol Sulfate [Proair Hfa] 1 puff IH Q4H PRN 03/24/17 [History] traZODone [TraZODone] 50 mg PO HS 03/24/17 [History] Gabapentin [Neurontin] 600 mg PO TID 04/07/17 [History] Tiotropium [Spiriva] 1 puff IH DAILY 04/07/17 [History] metFORMIN [Glucophage] 500 mg PO BID 04/07/17 [History] 3 Allergy/AdvReac Type Severity Reaction Status Date / Time No Known Allergies Allergy Verified 04/06/17 15:35 - Meds/Allergy Pre-op Review Medications Reviewed: Yes Allergies Reviewed: Yes Beta Blockers on Current Med List: No If Beta Blockers taken, Date/Time (Last Dose taken): 08:09 04/09/2017 Anesthesia Results - Labs 04/08/17 05:42 04/07/17 04:22 Echocardiogram Name: Leisa Hendrix Date of Study: 12/07/2016 Impressions: Mild LV systolic dysfunction, LVEF 45-50%. There is hypokinesis of the inferior wall. Mild concentric left ventricular hypertrophy. Mild left ventricular diastolic dysfunction. Normal right ventricular size and function. No significant valvular dysfunction. No evidence of pulmonary hypertension. Anesthesia Exam O2 Sat Weight 60.4 kg O2 Sat by Pulse Oximetry 95 O2 Sat by Pulse Oximetry 96 O2 Sat by Pulse Oximetry 96 O2 Sat by Pulse Oximetry 93 O2 Sat by Pulse Oximetry 93 O2 Sat by Pulse Oximetry 94 Vital Signs Temp Pulse Resp BP Pulse Ox 98.4 F 108 16 118/75 93 04/06/17 15:33 04/06/17 15:33 04/06/17 15:33 04/06/17 15:33 04/06/17 15:33 Vital Signs/O2 Sat, Most Current Temp Pulse Resp BP Pulse Ox 97.8 F 71 16 131/81 95 04/09/17 11:40 04/09/17 11:40 04/09/17 11:40 04/09/17 11:40 04/09/17 11:40 Height: 5'4'' Weight: 133# NPO (# of Hours): > 8 hrs Pain Scale: 0 Pain Scale Used: Numeric (1 - 10) - HEENT Pupil (Motor): Pupils equal, EOMI Mallampati: II Teeth: Normal Oral Opening: Greater than 3 - CAN CLOSING MACHINE OPERATOR LOC: Oriented CAN CLOSING MACHINE OPERATOR Motor: Normal RUE, Normal LUE, Normal RLE, Normal LLE, Normal Face CAN CLOSING MACHINE OPERATOR Sensory: Normal: RUE, LUE, RLE, LLE, Face - Cardiac Rhythm: Regular Murmur: None JVD: No Carotid Bruit: No - Pulmonary Breath Sounds: bilateral Clear Respiratory Effort: Symmetrical Anesthesia Assess/Plan ASA Score: 4 Modified [place] Scale for Level of Consciousness: Cooperative, oriented, and tranquil Anesthetic Plan: MAC Autologous Blood: Yes Monitoring Plan: Standard Monitors Recovery Plan: PACU
[2017-04-09] MEDS ORDERED: *HR* Propofol 200 MG/20 ML VIAL IVP ONE ×3 (17:00→18:22)
[2017-04-09] MEDS ORDERED: Lidocaine -MPF 2% 2 ML VIAL ONE (17:00)
[2017-04-09] MEDS ORDERED: Propofol 500 MG/50 ML INFUS..BTL ONE (18:41)
[2017-04-09] MEDS: *HR* Rivaroxaban 10 MG TABLET PO SCH (19:50)
--- NOTE | 2017-04-09 20:07 | Event Note ---
Date of Encounter: 04/09/17 Time of Encounter: 18:00 Patient with abnormal imaging suspicious for possible gastric tumors. Patient status post biopsies with the kunal vega along with FNA with the EUS needle. Recommendation: Patient can be discharged and she can follow-up with me as an outpatient next week
[2017-04-09] MEDS: traZODone 50 MG TABLET PO SCH (21:21)
[2017-04-09] MEDS: Insulin DETEMIR 100 UNIT/ML X5UNITS SQ SCH (21:22)
[2017-04-10] MEDS: *HR* Morphine 2 MG/ML SYRINGE IVP PRN ×7 (03:03→21:34)
[2017-04-10] MEDS: Insulin LISPRO 300 UNITS/3 ML VIAL SQ SCH ×4 (05:52→20:50)
[2017-04-10] MEDS: metroNIDAZOLE 500 MG TABLET PO SCH ×3 (07:52→20:51)
[2017-04-10] MEDS: Gabapentin 300 MG CAPSULE PO SCH ×3 (07:52→20:51)
[2017-04-10] MEDS: Metoprolol XL (24 HR) Succ 25 MG TAB.ER.24H PO SCH (07:52)
--- NOTE | 2017-04-10 11:07 | Discharge Summary ---
Date of Encounter: 04/10/17 Time of Encounter: 11:02 - Discharge Diagnosis (1) UTI (urinary tract infection) Priority: Primary Status: Acute Qualifiers: Urinary tract infection type: acute cystitis Hematuria presence: without hematuria Qualified Code(s): N30.00 - Acute cystitis without hematuria (2) Pancreatitis Priority: Primary Status: Acute Qualifiers: Chronicity: acute Acute pancreatitis complication: unspecified Qualified Code(s): K85.90 - Acute pancreatitis without necrosis or infection, unspecified (3) COPD (chronic obstructive pulmonary disease) Priority: Secondary Status: Chronic Qualifiers: COPD type: emphysema Emphysema type: other Qualified Code(s): J43.8 - Other emphysema (4) Gastritis Priority: Secondary Status: Acute Qualifiers: Gastritis type: other gastritis Chronicity: acute Gastritis bleeding: with bleeding Qualified Code(s): K29.01 - Acute gastritis with bleeding (5) Pancreatic cyst Priority: Secondary Status: Acute (6) Diabetes mellitus Priority: Secondary Status: Chronic Qualifiers: Diabetes mellitus type: type 2 Diabetes mellitus complication status: with circulatory complication Diabetes mellitus complication detail: with peripheral angiopathy without gangrene Diabetes mellitus termite treater helper insulin use : without termite treater helper use Qualified Code(s): E11.51 - Type 2 diabetes mellitus with diabetic peripheral angiopathy without gangrene (7) C. difficile colitis Priority: Secondary Status: Acute - Discharge Medications Prescriptions: Ciprofloxacin [Cipro] 500 mg PO BID #20 tablet metroNIDAZOLE [Flagyl] 500 mg PO TID #30 tablet Omeprazole [PriLOSEC] 20 mg PO BIDAC #60 capsule.dr Home Medications: Aspirin [Lo-Dose Aspirin EC] 81 mg PO DAILY 12/01/16 [History] Atorvastatin [Lipitor] 20 mg PO HS tab 12/12/16 [Rx] Metoprolol XL (24 HR) Succ [Toprol Xl] 25 mg PO DAILY 12/12/16 [Rx] Rivaroxaban [Xarelto] 20 mg PO DAILY@1700 tab 12/12/16 [Rx] Albuterol Sulfate [Proair Hfa] 1 puff IH Q4H PRN 03/24/17 [History] traZODone [TraZODone] 50 mg PO HS 03/24/17 [History] Gabapentin [Neurontin] 600 mg PO TID 04/07/17 [History] Tiotropium [Spiriva] 1 puff IH DAILY 04/07/17 [History] metFORMIN [Glucophage] 500 mg PO BID 04/07/17 [History] Ciprofloxacin [Cipro] 500 mg PO BID #20 tablet 04/10/17 [Rx] Omeprazole [PriLOSEC] 20 mg PO BIDAC #60 capsule. 04/10/17 [Rx] metroNIDAZOLE [Flagyl] 500 mg PO TID #30 tablet 04/10/17 [Rx] Allergies/Adverse Reactions: 3 Allergy/AdvReac Type Severity Reaction Status Date / Time No Known Allergies Allergy Verified 04/06/17 15:35 Procedures/tests Complete & Pending: Procedures Performed prior 72 hours Category Date Time Status EV echocardiogram Routine Y 04/09/17 15:23 Completed Venous Ultrasound [EV venous imaging UE LT] Stat Y 04/10/17 08:31 Stop Req Venous Ultrasound [EV venous imaging UE RT] Stat Y 04/10/17 08:36 Ordered Date of admission: 04/09/17 10:46 Primary care physician: Vicky White CNP Discharging clinician: Radha Garrett Anticipated date of discharge: 04/11/17 - Patient Status Disposition: Home, Self-Care Condition: Fair Overall status at discharge: patient is progressing back to baseline - Discharge Instructions Follow Up With: Vicky White CNP [Primary Care Provider] - - Diet and Activity Activity: resume usual activities as tolerated Diet: advance to your usual diet, diabetic diet, low fat, low cholesterol, low salt diet Hospital course: Ms. Hendrix is a 57 year old female Admitted for abdominal pain. MRI of abdomen showed evidence of acute pancreatitis as well as pseudocyst 1.6 cm. Gastroenterology consulted and an EGD was done. A papule was noted in his stomach and biopsy was taken but the preliminary reports are negative for malignancy. MRI of the abdomen was also done and did not show any malignancy. It did show pancreatitis with 1.6 cm cyst. She was treated conservatively made nothing by mouth. Patient will follow-up with Dr. Mo for continuous follow- up. GI has recommended to continue her anticoagulation was Xarelto as she has previous history of DVT. We have advised her to follow with her family doctor to see that after a month for Xarelto can be stopped as it will be 6 months treatment for her DVT then. Started on Prilosec 20 twice a day. No evidence of bleed was noted during EGD except for gastritis.. Urine culture showed Staphylococcus Lugdunesis sensitive to Cipro. Echocardiogram negative for vegetation showed EF of 45%.. Stool shows C. difficile. Flagyl added. Her diet has been advanced and once her diarrhea stopped she can be discharged. - Time Spent with Patient Total time spent providing and/or coordinating discharge services: Greater than 30 minutes - Constitutional Vitals: Temp Pulse Resp BP Pulse Ox 98.1 F 72 14 155/79 95 04/10/17 10:27 04/10/17 10:27 04/10/17 10:27 04/10/17 10:27 04/10/17 10:27 General appearance: Present: A&O X 3, no acute distress, answers questions appropriately - Head Head exam: Present: atraumatic, normocephalic - Eye Eye exam: Present: PERRL, conjuntiva pink, sclera anicteric Pupils: Present: PERRL - Neck Neck exam general surgery: Present: supple, trachea midline. Absent: lymphadenopathy - Respiratory Respiratory exam: Present: CTAB. Absent: accessory muscle use, rales, rhonchi, wheezes - Cardiovascular Cardiovascular exam: Present: RRR, +S1, +S2. Absent: diastolic murmur, gallop, rubs, systolic murmur - GI/Abdominal GI/Abdominal exam: Present: normal bowel sounds, soft, no peritoneal signs. Absent: distended, tenderness - Extremities Exam Extremities exam: Present: warm, radial pulses palpable and symmetrical. Absent : calf tenderness, cyanotic, pedal edema - Neurological Exam Neurological exam: Present: CN II-XII intact, oriented X3, no focal deficits. Absent: pronater drift, facial droop, speech deficit - Skin Skin exam: Present: dry, intact - VTE Documentation of Mechanical Device: Intermittent pneumatic compression device
[2017-04-10] MEDS: Tiotropium 18 MCG inhalation IH SCH (15:10)
[2017-04-10] MEDS: *HR* Rivaroxaban 10 MG TABLET PO SCH (17:18)
[2017-04-10] MEDS: Insulin DETEMIR 100 UNIT/ML X5UNITS SQ SCH (20:50)
[2017-04-10] MEDS: traZODone 50 MG TABLET PO SCH (20:51)
[2017-04-11] MEDS: *HR* Morphine 2 MG/ML SYRINGE IVP PRN ×3 (00:36→08:41)
[2017-04-11] MEDS: Tiotropium 18 MCG inhalation IH SCH (07:35)
[2017-04-11] MEDS: Gabapentin 300 MG CAPSULE PO SCH ×3 (08:48→22:12)
[2017-04-11] MEDS: metroNIDAZOLE 500 MG TABLET PO SCH ×3 (08:48→22:13)
[2017-04-11] MEDS: Metoprolol XL (24 HR) Succ 25 MG TAB.ER.24H PO SCH (08:49)
[2017-04-11] MEDS: Insulin LISPRO 300 UNITS/3 ML VIAL SQ SCH ×4 (08:50→22:12)
[2017-04-11] MEDS: *HR* HYDROcodone/Acet 5/325 mg TABLET PO PRN ×2 (12:59→19:05)
[2017-04-11] MEDS: *HR* Rivaroxaban 10 MG TABLET PO SCH (16:13)
--- NOTE | 2017-04-11 18:11 | Internal Med Progress Note ---
Date of Encounter: 04/11/17 Time of Encounter: 18:10 - Assessment and plan (1) UTI (urinary tract infection) Current Visit: Yes Status: Acute Qualifiers: Urinary tract infection type: acute cystitis Hematuria presence: without hematuria Qualified Code(s): N30.00 - Acute cystitis without hematuria (2) Pancreatitis Current Visit: Yes Status: Acute Qualifiers: Chronicity: acute Acute pancreatitis complication: unspecified Qualified Code(s): K85.90 - Acute pancreatitis without necrosis or infection, unspecified (3) COPD (chronic obstructive pulmonary disease) Current Visit: Yes Status: Chronic Qualifiers: COPD type: emphysema Emphysema type: other Qualified Code(s): J43.8 - Other emphysema (4) Gastritis Current Visit: Yes Status: Acute Qualifiers: Gastritis type: other gastritis Chronicity: acute Gastritis bleeding: with bleeding Qualified Code(s): K29.01 - Acute gastritis with bleeding (5) Pancreatic cyst Current Visit: Yes Status: Acute (6) Diabetes mellitus Current Visit: Yes Status: Chronic Qualifiers: Diabetes mellitus type: type 2 Diabetes mellitus complication status: with circulatory complication Diabetes mellitus complication detail: with peripheral angiopathy without gangrene 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 difficile colitis Current Visit: Yes Status: Acute - Subjective Interval history: Admitted for abdominal pain. MRI of abdomen showed evidence of acute pancreatitis as well as pseudocyst 1.6 cm. Gastroenterology is on the case. Urine culture showed gram-positive cocci. Sensitivities pending. Stool shows C. difficile. Flagyl added. Also has history of gastritis. Patient is on Xarelto. Follow CBC CMP amylase lipase.. 04/09 patient urine culture showed Staphylococcus lugdunesis 100,000 colonies. It is sensitive to Cipro. I will order an echocardiogram to rule out endocarditis infection. Patient abdomen seems better and therefore clear liquids will be started. Patient had DVT in July 2006 but she did not take full anticoagulation for a few months. She has been on anticoagulation for 5 months before Xarelto will be restarted. Apparently endoscopy showed only gastritis without any rebleed and she has been on IV Protonix with no drop in hemoglobin for more than 3 days. We can change her Protonix to by mouth and start her anticoagulation was Xarelto. I encouraged her to talk to her family doctor and see if she can be off anticoagulation in a month. Gastric biopsies pending. 04/11 tolerating full diet. Still has diarrhea. Had 7 loose bowel movement yesterday. Once frequency of diarrhea is under control with plan to discharge her. We are covering C. difficile with Flagyl. - Constitutional Vitals: Temp Pulse Resp BP Pulse Ox 98.1 F 83 14 101/69 96 04/11/17 14:24 04/11/17 14:24 04/11/17 14:24 04/11/17 14:24 04/11/17 14:24 General appearance: Present: A&O X 3, no acute distress, answers questions appropriately - Head Head exam: Present: atraumatic, normocephalic - Eye Eye exam: Present: PERRL, conjuntiva pink, sclera anicteric Pupils: Present: PERRL - Neck Neck exam general surgery: Present: supple, trachea midline. Absent: lymphadenopathy - Respiratory Respiratory exam: Present: CTAB. Absent: accessory muscle use, rales, rhonchi, wheezes - Cardiovascular Cardiovascular exam: Present: RRR, +S1, +S2. Absent: diastolic murmur, gallop, rubs, systolic murmur - GI/Abdominal GI/Abdominal exam: Present: normal bowel sounds, soft, no peritoneal signs. Absent: distended, tenderness - Extremities Exam Extremities exam: Present: warm, radial pulses palpable and symmetrical. Absent : calf tenderness, cyanotic, pedal edema - Neurological Exam Neurological exam: Present: CN II-XII intact, oriented X3, no focal deficits. Absent: pronater drift, facial droop, speech deficit - Skin Skin exam: Present: dry, intact Internal Medicine: Result - Labs CBC & Chem 7: 04/08/17 05:42 04/07/17 04:22 - ABG Interpretation ABG results: PT/INR, D-dimer PT 14.4 Seconds (9.4-12.1) H 04/07/17 04:22 - VTE Documentation of Mechanical Device: Intermittent pneumatic compression device Consult Discharge Plan - Plan Referrals: Vicky White, SALES TEAM MANAGER [Primary Care Provider] - Prescriptions: Ciprofloxacin [Cipro] 500 mg PO BID #20 tablet metroNIDAZOLE [Flagyl] 500 mg PO TID #30 tablet Omeprazole [PriLOSEC] 20 mg PO BIDAC #60 capsule.
[2017-04-11] MEDS: Insulin DETEMIR 100 UNIT/ML X5UNITS SQ SCH (22:12)
[2017-04-11] MEDS: traZODone 50 MG TABLET PO SCH (22:13)
[2017-04-12] MEDS: *HR* HYDROcodone/Acet 5/325 mg TABLET PO PRN ×4 (01:21→20:07)
[2017-04-12] MEDS: Insulin LISPRO 300 UNITS/3 ML VIAL SQ SCH ×4 (07:41→20:59)
[2017-04-12] MEDS: Metoprolol XL (24 HR) Succ 25 MG TAB.ER.24H PO SCH (09:02)
[2017-04-12] MEDS: metroNIDAZOLE 500 MG TABLET PO SCH ×3 (09:03→20:07)
[2017-04-12] MEDS: Gabapentin 300 MG CAPSULE PO SCH ×3 (09:03→20:07)
[2017-04-12] MEDS: Tiotropium 18 MCG inhalation IH SCH (10:32)
--- NOTE | 2017-04-12 11:55 | Internal Med Progress Note ---
Date of Encounter: 04/12/17 Time of Encounter: 11:53 - Assessment and plan (1) UTI (urinary tract infection) Current Visit: Yes Status: Acute Assessment and plan: Urine culture showed Staphylococcus Lugdunesis sensitive to Cipro. Echocardiogram did not show any vegetation. Qualifiers: Urinary tract infection type: acute cystitis Hematuria presence: without hematuria Qualified Code(s): N30.00 - Acute cystitis without hematuria (2) Pancreatitis Current Visit: Yes Status: Acute Assessment and plan: CT abdomen and MRI showed acute pancreatitis with pseudocyst 1.6 cm. Treated conservatively and now has settled down. Qualifiers: Chronicity: acute Acute pancreatitis complication: unspecified Qualified Code(s): K85.90 - Acute pancreatitis without necrosis or infection, unspecified (3) COPD (chronic obstructive pulmonary disease) Current Visit: Yes Status: Chronic Assessment and plan: Not in acute exacerbation. Continue home medications and bronchodilators as needed Qualifiers: COPD type: emphysema Emphysema type: other Qualified Code(s): J43.8 - Other emphysema (4) Gastritis Current Visit: Yes Status: Acute Assessment and plan: Patient with acute abdominal pain with CT scan findings concerning for gastritis and melena. Continue PPI. Nothing by mouth. Upper GI endoscopy done Qualifiers: Gastritis type: other gastritis Chronicity: acute Gastritis bleeding: with bleeding Qualified Code(s): K29.01 - Acute gastritis with bleeding (5) Pancreatic cyst Current Visit: Yes Status: Acute (6) Diabetes mellitus Current Visit: Yes Status: Chronic Assessment and plan: Accu-Chek 4 times a day with sliding scale coverage daily. Qualifiers: Diabetes mellitus type: type 2 Diabetes mellitus complication status: with circulatory complication Diabetes mellitus complication detail: with peripheral angiopathy without gangrene Diabetes mellitus termite technician insulin use : without halfway use Qualified Code(s): E11.51 - Type 2 diabetes mellitus with diabetic peripheral angiopathy without gangrene (7) C. difficile colitis Current Visit: Yes Status: Acute Assessment and plan: Flagyl was tried but is still having diarrhea therefore add vancomycin. Follow electrolytes and supplement and recheck them as needed - Subjective Interval history: Admitted for abdominal pain. MRI of abdomen showed evidence of acute pancreatitis as well as pseudocyst 1.6 cm. Gastroenterology is on the case. Urine culture showed gram-positive cocci. Sensitivities pending. Stool shows C. difficile. Flagyl added. Also has history of gastritis. Patient is on Xarelto. Follow CBC CMP amylase lipase.. 04/09 patient urine culture showed Staphylococcus lugdunesis 100,000 colonies. It is sensitive to Cipro. I will order an echocardiogram to rule out endocarditis infection. Patient abdomen seems better and therefore clear liquids will be started. Patient had DVT in July 2006 but she did not take full anticoagulation for a few months. She has been on anticoagulation for 5 months before Xarelto will be restarted. Apparently endoscopy showed only gastritis without any rebleed and she has been on IV Protonix with no drop in hemoglobin for more than 3 days. We can change her Protonix to by mouth and start her anticoagulation was Xarelto. I encouraged her to talk to her family doctor and see if she can be off anticoagulation in a month. Gastric biopsies pending. 04/11 tolerating full diet. Still has diarrhea. Had 7 loose bowel movement yesterday. Once frequency of diarrhea is under control with plan to discharge her. We are covering C. difficile with Flagyl. 04/12 diarrhea continues and has been having quite frequently. No abdominal pain. We tried Flagyl but it did not reduce the frequency therefore will go ahead and add vancomycin and repeat her CBC CMP magnesium and phosphate. - Constitutional Vitals: Temp Pulse Resp BP Pulse Ox 98.0 F 68 18 154/94 99 04/12/17 07:40 04/12/17 07:40 04/12/17 07:40 04/12/17 07:40 04/12/17 07:40 General appearance: Present: A&O X 3, no acute distress, answers questions appropriately - Head Head exam: Present: atraumatic, normocephalic - Eye Eye exam: Present: PERRL, conjuntiva pink, sclera anicteric Pupils: Present: PERRL - Neck Neck exam general surgery: Present: supple, trachea midline. Absent: lymphadenopathy - Respiratory Respiratory exam: Present: CTAB. Absent: accessory muscle use, rales, rhonchi, wheezes - Cardiovascular Cardiovascular exam: Present: RRR, +S1, +S2. Absent: diastolic murmur, gallop, rubs, systolic murmur - GI/Abdominal GI/Abdominal exam: Present: normal bowel sounds, soft, no peritoneal signs. Absent: distended, tenderness - Extremities Exam Extremities exam: Present: warm, radial pulses palpable and symmetrical. Absent : calf tenderness, cyanotic, pedal edema - Neurological Exam Neurological exam: Present: CN II-XII intact, oriented X3, no focal deficits. Absent: pronater drift, facial droop, speech deficit - Skin Skin exam: Present: dry, intact Internal Medicine: Result - Labs CBC & Chem 7: 04/08/17 05:42 04/07/17 04:22 - ABG Interpretation ABG results: PT/INR, D-dimer PT 14.4 Seconds (9.4-12.1) H 04/07/17 04:22 - VTE Documentation of Mechanical Device: Intermittent pneumatic compression device Consult Discharge Plan - Plan Referrals: Vicky White CNP [Primary Care Provider] - Prescriptions: Ciprofloxacin [Cipro] 500 mg PO BID #20 tablet metroNIDAZOLE [Flagyl] 500 mg PO TID #30 tablet Omeprazole [PriLOSEC] 20 mg PO BIDAC #60 capsule.
[2017-04-12] MEDS: Vancomycin Oral Soln 250 MG/5 ML UDC PO SCH ×3 (13:56→20:58)
[2017-04-12] MEDS: *HR* Rivaroxaban 10 MG TABLET PO SCH (16:33)
[2017-04-12] MEDS: Insulin DETEMIR 100 UNIT/ML X5UNITS SQ SCH (20:07)
[2017-04-12] MEDS: traZODone 50 MG TABLET PO SCH (20:07)
[2017-04-13] MEDS: *HR* HYDROcodone/Acet 5/325 mg TABLET PO PRN ×4 (03:22→22:25)
[2017-04-13 06:28] LABS: Basophils # 0.1 K/mcL (0.0-0.2); Basophils % 0.9 %; Eosinophils # 0.6 K/mcL (0.0-0.6); Eosinophils % 5.6 %; Hematocrit 35.3 % (35.3-44.9); Hemoglobin 11.4 g/dL (11.5-15.4); Immature Granulocytes % 0.7 % (0-4); Lymphocytes % 18.8 %; Mean Corpuscular HGB Conc 32.3 g/dL (31.6-35.5); Mean Corpuscular Hemoglobin 28.1 pg (28.0-33.3); Mean Corpuscular Volume 87.2 fL (83.0-100.0); Mean Platelet Volume 10.7 fL (9.4-12.4); Monocytes # 0.6 K/mcL (0.0-1.3); Monocytes % 5.3 %; Neutrophils # 7.4 K/mcL (1.6-8.9); Platelet Count 415 K/mcL (140-400); Red Blood Count 4.05 M/mcL (3.82-4.97); Red Cell Distribution Width 14.6 % (11.5-14.5); Segmented Neutrophils % 68.7 %
[2017-04-13 06:36] LABS: Alanine Aminotransferase 6 Units/L (0-55); Albumin 2.2 g/dL (3.5-5.0); Albumin/Globulin Ratio 0.5 (1.1-2.2); Alkaline Phosphatase 74 Units/L (38-126); Aspartate Amino Transferase 9 Units/L (5-34); BUN/Creatinine Ratio 16 (6-26); Bilirubin,Total 0.2 mg/dL (0.2-1.2); Blood Urea Nitrogen 16 mg/dL (7-20); Calcium 8.6 mg/dL (8.6-10.8); Carbon Dioxide 23 mEq/L (19-29); Chloride 102 mEq/L (98-109); Globulin 4.3 g/dL (2.4-3.5); Glucose 371 mg/dL (70-99); Magnesium 1.5 mg/dL (1.6-2.6); Osmolality,Calculated 292 (280-300); Phosphorous 2.9 mg/dL (2.3-4.7); Potassium 4.3 mEq/L (3.5-4.5); Sodium 133 mEq/L (136-145); Total Protein 6.5 g/dL (6.0-8.3); eGFR For African Americans > 60 (> 60); eGFR For Non-African Americans 58 (> 60)
[2017-04-13] MEDS: Insulin LISPRO 300 UNITS/3 ML VIAL SQ SCH ×6 (10:05→22:16)
[2017-04-13] MEDS: Gabapentin 300 MG CAPSULE PO SCH ×3 (10:05→22:16)
[2017-04-13] MEDS: Metoprolol XL (24 HR) Succ 25 MG TAB.ER.24H PO SCH (10:05)
[2017-04-13] MEDS: metroNIDAZOLE 500 MG TABLET PO SCH ×3 (10:06→22:16)
[2017-04-13] MEDS: Vancomycin Oral Soln 250 MG/5 ML UDC PO SCH ×4 (10:07→22:17)
[2017-04-13] MEDS: Tiotropium 18 MCG inhalation IH SCH (10:30)
[2017-04-13] MEDS: Insulin DETEMIR 100 UNIT/ML X5UNITS SQ SCH ×2 (16:20→22:10)
--- NOTE | 2017-04-13 16:51 | Internal Med Progress Note ---
Date of Encounter: 04/13/17 Time of Encounter: 16:50 - Assessment and plan (1) UTI (urinary tract infection) Current Visit: Yes Status: Acute Assessment and plan: Urine culture showed Staphylococcus Lugdunesis sensitive to Cipro. Echocardiogram did not show any vegetation. Qualifiers: Urinary tract infection type: acute cystitis Hematuria presence: without hematuria Qualified Code(s): N30.00 - Acute cystitis without hematuria (2) Pancreatitis Current Visit: Yes Status: Acute Assessment and plan: CT abdomen and MRI showed acute pancreatitis with pseudocyst 1.6 cm. Treated conservatively and now has settled down. Qualifiers: Chronicity: acute Pancreatitis type: unspecified pancreatitis type Acute pancreatitis complication: unspecified Qualified Code(s): K85.90 - Acute pancreatitis without necrosis or infection, unspecified (3) COPD (chronic obstructive pulmonary disease) Current Visit: Yes Status: Chronic Assessment and plan: Not in acute exacerbation. Continue home medications and bronchodilators as needed Qualifiers: COPD type: emphysema Emphysema type: other Qualified Code(s): J43.8 - Other emphysema (4) Gastritis Current Visit: Yes Status: Acute Assessment and plan: Patient with acute abdominal pain with CT scan findings concerning for gastritis and melena. Continue PPI. Nothing by mouth. Upper GI endoscopy done Qualifiers: Gastritis type: other gastritis Chronicity: acute Gastritis bleeding: with bleeding Qualified Code(s): K29.01 - Acute gastritis with bleeding (5) Pancreatic cyst Current Visit: Yes Status: Acute Assessment and plan: Per CT scan. Recommended MRI for better delineation. Patient has normal lipase levels. MRI of the abdomen ordered. Pending clearance from radiology to do this as patient has had prior iliac stents. (6) Diabetes mellitus Current Visit: Yes Status: Chronic Assessment and plan: Accu-Chek 4 times a day with sliding scale coverage daily. Qualifiers: Diabetes mellitus type: type 2 Diabetes mellitus complication status: with circulatory complication Diabetes mellitus complication detail: with peripheral angiopathy without gangrene Diabetes mellitus half-way insulin use : without half-way use Qualified Code(s): E11.51 - Type 2 diabetes mellitus with diabetic peripheral angiopathy without gangrene (7) C. difficile colitis Current Visit: Yes Status: Acute Assessment and plan: Flagyl was tried but is still having diarrhea therefore add vancomycin. Follow electrolytes and supplement and recheck them as needed - Subjective Interval history: Admitted for abdominal pain. MRI of abdomen showed evidence of acute pancreatitis as well as pseudocyst 1.6 cm. Gastroenterology is on the case. Urine culture showed gram-positive cocci. Sensitivities pending. Stool shows C. difficile. Flagyl added. Also has history of gastritis. Patient is on Xarelto. Follow CBC CMP amylase lipase.. 04/09 patient urine culture showed Staphylococcus lugdunesis 100,000 colonies. It is sensitive to Cipro. I will order an echocardiogram to rule out endocarditis infection. Patient abdomen seems better and therefore clear liquids will be started. Patient had DVT in July 2006 but she did not take full anticoagulation for a few months. She has been on anticoagulation for 5 months before Xarelto will be restarted. Apparently endoscopy showed only gastritis without any rebleed and she has been on IV Protonix with no drop in hemoglobin for more than 3 days. We can change her Protonix to by mouth and start her anticoagulation was Xarelto. I encouraged her to talk to her family doctor and see if she can be off anticoagulation in a month. Gastric biopsies pending. 04/11 tolerating full diet. Still has diarrhea. Had 7 loose bowel movement yesterday. Once frequency of diarrhea is under control with plan to discharge her. We are covering C. difficile with Flagyl. 04/12 diarrhea continues and has been having quite frequently. No abdominal pain. We tried Flagyl but it did not reduce the frequency therefore will go ahead and add vancomycin and repeat her CBC CMP magnesium and phosphate. 04/13 still has diarrhea. Will add vancomycin. Complaining of left-sided flank pain. Will check chest x-ray - Constitutional Vitals: Temp Pulse Resp BP Pulse Ox 98.0 F 80 16 133/73 98 04/13/17 16:03 04/13/17 16:03 04/13/17 16:03 04/13/17 16:03 04/13/17 16:03 General appearance: Present: A&O X 3, no acute distress, answers questions appropriately - Head Head exam: Present: atraumatic, normocephalic - Eye Eye exam: Present: PERRL, conjuntiva pink, sclera anicteric Pupils: Present: PERRL - Neck Neck exam general surgery: Present: supple, trachea midline. Absent: lymphadenopathy - Respiratory Respiratory exam: Present: CTAB. Absent: accessory muscle use, rales, rhonchi, wheezes - Cardiovascular Cardiovascular exam: Present: RRR, +S1, +S2. Absent: diastolic murmur, gallop, rubs, systolic murmur - GI/Abdominal GI/Abdominal exam: Present: normal bowel sounds, soft, no peritoneal signs. Absent: distended, tenderness - Extremities Exam Extremities exam: Present: warm, radial pulses palpable and symmetrical. Absent : calf tenderness, cyanotic, pedal edema - Neurological Exam Neurological exam: Present: CN II-XII intact, oriented X3, no focal deficits. Absent: pronater drift, facial droop, speech deficit - Skin Skin exam: Present: dry, intact Internal Medicine: Result - Labs CBC & Chem 7: 04/13/17 06:02 04/13/17 06:02 Labs: Short CBC 04/13/17 Range/Units 06:02 WBC 10.8 (4.3-11.1) K/mcL Hgb 11.4 L (11.5-15.4) g/dL Hct 35.3 (35.3-44.9) % Plt Count 415 H (140-400) K/mcL Neutrophils # 7.4 (1.6-8.9) K/mcL BMP 04/13/17 06:02 Sodium 133 L Potassium 4.3 Chloride 102 Carbon Dioxide 23 BUN 16 Creatinine 0.99 Glucose 371 H Calcium 8.6 Liver Function 04/13/17 Range/Units 06:02 Total Bilirubin 0.2 (0.2-1.2) mg/dL AST 9 (5-34) Units/L ALT 6 (0-55) Units/L Alkaline Phosphatase 74 (38-126) Units/L Albumin 2.2 L (3.5-5.0) g/dL - ABG Interpretation ABG results: PT/INR, D-dimer PT 14.4 Seconds (9.4-12.1) H 04/07/17 04:22 - VTE Documentation of Mechanical Device: Intermittent pneumatic compression device Consult Discharge Plan - Plan Referrals: Vicky White CNP [Primary Care Provider] - Prescriptions: Ciprofloxacin [Cipro] 500 mg PO BID #20 tablet metroNIDAZOLE [Flagyl] 500 mg PO TID #30 tablet Omeprazole [PriLOSEC] 20 mg PO BIDAC #60 capsule.
[2017-04-13] MEDS: *HR* Rivaroxaban 10 MG TABLET PO SCH (19:08)
[2017-04-13] MEDS: traZODone 50 MG TABLET PO SCH (22:16)
[2017-04-14] MEDS: *HR* HYDROcodone/Acet 5/325 mg TABLET PO PRN ×3 (04:29→16:49)
[2017-04-14 05:41] LABS: Basophils # 0.1 K/mcL (0.0-0.2); Basophils % 1.2 %; Eosinophils # 0.7 K/mcL (0.0-0.6); Eosinophils % 6.7 %; Hematocrit 35.4 % (35.3-44.9); Hemoglobin 11.4 g/dL (11.5-15.4); Immature Granulocytes % 1.2 % (0-4); Lymphocytes # 2.6 K/mcL (0.6-4.6); Lymphocytes % 26.7 %; Mean Corpuscular HGB Conc 32.2 g/dL (31.6-35.5); Mean Corpuscular Hemoglobin 28.5 pg (28.0-33.3); Mean Corpuscular Volume 88.5 fL (83.0-100.0); Mean Platelet Volume 10.9 fL (9.4-12.4); Monocytes # 0.7 K/mcL (0.0-1.3); Monocytes % 6.8 %; Neutrophils # 5.7 K/mcL (1.6-8.9); Platelet Count 395 K/mcL (140-400); Red Cell Distribution Width 14.8 % (11.5-14.5); Segmented Neutrophils % 57.4 %
[2017-04-14 05:54] LABS: Hemoglobin A1C 9.2 %
[2017-04-14 06:00] LABS: Alanine Aminotransferase 8 Units/L (0-55); Albumin 2.4 g/dL (3.5-5.0); Albumin/Globulin Ratio 0.6 (1.1-2.2); Alkaline Phosphatase 76 Units/L (38-126); Aspartate Amino Transferase 7 Units/L (5-34); BUN/Creatinine Ratio 18 (6-26); Bilirubin,Total 0.2 mg/dL (0.2-1.2); Blood Urea Nitrogen 16 mg/dL (7-20); Calcium 9.3 mg/dL (8.6-10.8); Carbon Dioxide 24 mEq/L (19-29); Chloride 102 mEq/L (98-109); Globulin 4.1 g/dL (2.4-3.5); Glucose 335 mg/dL (70-99); Magnesium 1.9 mg/dL (1.6-2.6); Osmolality,Calculated 286 (280-300); Phosphorous 3.1 mg/dL (2.3-4.7); Potassium 4.5 mEq/L (3.5-4.5); Sodium 131 mEq/L (136-145); Total Protein 6.5 g/dL (6.0-8.3); eGFR For African Americans > 60 (> 60); eGFR For Non-African Americans > 60 (> 60)
[2017-04-14] MEDS: Tiotropium 18 MCG inhalation IH SCH (07:28)
[2017-04-14] MEDS: Vancomycin Oral Soln 250 MG/5 ML UDC PO SCH ×3 (08:52→16:50)
[2017-04-14] MEDS: Metoprolol XL (24 HR) Succ 25 MG TAB.ER.24H PO SCH (08:53)
[2017-04-14] MEDS: Gabapentin 300 MG CAPSULE PO SCH ×2 (08:53→16:49)
[2017-04-14] MEDS: metroNIDAZOLE 500 MG TABLET PO SCH ×2 (08:53→16:50)
[2017-04-14] MEDS: Insulin LISPRO 300 UNITS/3 ML VIAL SQ SCH ×5 (09:00→16:51)
--- NOTE | 2017-04-14 11:38 | Gastroenterology Progress Note ---
<Jostin Del Valle - Last Filed: 04/14/17 13:49> Date of Encounter: 04/14/17 Time of Encounter: 11:36 - Assessment and plan (1) Gastric tumor Status: Suspected Assessment and plan: currently waiting pathology results of FNA patient can follow up outpatient for results. (2) Melena Status: Acute Assessment and plan: patient presented with abdominal pain and black stools she is on xeralto for left leg arterial thrombus EGD showed congestive gastropathy, no signs of bleeding or ulcer CT shows evidence of possible gastric tumor awaiting pathology results of FNA biopsy has not had any more melena hgb stable. 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 (4) DVT prophylaxis Status: Acute Assessment and plan: restarted on xeralto (5) C. difficile colitis Status: Acute Assessment and plan: treated with PO vancomycin and flagyl. - Time Spent With Patient Total time spent is greater than 50% in coordination of care (as documented) at patient's floor/unit and/or counseling patient: - Subjective Interval history: Patient denies black stools, hematochezia. Denies abdominal pain, nausea, vomiting. - Constitutional Vitals: Temp Pulse Resp BP Pulse Ox 98.1 F 76 17 127/83 94 04/14/17 08:32 04/14/17 08:32 04/14/17 08:32 04/14/17 08:32 04/14/17 08:32 - Other Additional findings: General: Pleasant without distress Heart: Regular rate and rhythm with no murmur Lungs: Clear to auscultation bilaterally Abdomen: Soft nontender, nondistended positive bowel sounds Skin: warm and dry Extremities: Absent pedal edema, Vascular: Pedal and radial pulses 2 out of 4 Results - Labs CBC & Chem 7: 04/14/17 05:08 04/14/17 05:08 Labs: Last Result Calcium 9.3 mg/dL (8.6-10.8) 04/14/17 05:08 Troponin I 0.01 ng/mL (0-0.03) 04/06/17 16:26 Stool Occult Blood Negative (Negative) 04/06/17 16:44 Entire Visit Hgb 11.4 g/dL (11.5-15.4) L 04/14/17 05:08 Hct 35.4 % (35.3-44.9) 04/14/17 05:08 PT 14.4 Seconds (9.4-12.1) H 04/07/17 04:22 Total Bilirubin 0.2 mg/dL (0.2-1.2) 04/14/17 05:08 AST 7 Units/L (5-34) 04/14/17 05:08 ALT 8 Units/L (0-55) 04/14/17 05:08 Lipase 52 Units/L (8-78) 04/06/17 16:26 Carcinoembryonic Ag 1.5 ng/mL (0-5.0) 04/08/17 12:05 CA 19-9 Antigen 9 U/mL (0-37) 04/08/17 12:05 - ABG ABG results: PT/INR, D-dimer PT 14.4 Seconds (9.4-12.1) H 04/07/17 04:22 - Impressions Impressions Chest X-Ray 04/13/17 16:53 IMPRESSION: Negative chest. D/ / Alysha Copeland MD / Alysha Copeland MD Interpreting Provider: Alysha Copeland MD - VTE Documentation of Mechanical Device: Intermittent pneumatic compression device Consult Discharge Plan - Plan Instructions: How to Check Your Blood Sugar (DC), Diabetic Foot Care (DC), Diabetic Hypoglycemia (DC), Diabetes Mellitus Type 2 in Adults (DC), Peripheral Vascular Disorders (DC), Clostridium Difficile Infection (DC), Managing Diabetes During Sick Days (DC), Hyperglycemia, Non-Diabetic (DC) Referrals: Vicky White CNP [Primary Care Provider] - 04/22/17 1:15 pm Humphrey Mo MD [Partnered Physician] - (WEB REQUEST ENTERED. OFFICE WILL CALL WITH APPOINTMENT.) Prescriptions: Ciprofloxacin [Cipro] 500 mg PO BID #20 tablet metroNIDAZOLE [Flagyl] 500 mg PO TID #30 tablet Omeprazole [PriLOSEC] 20 mg PO BIDAC #60 capsule.dr Oxycodone HCl/Acetaminophen [Percocet 5-325 mg Tablet] 1 each PO TID PRN #10 tablet PRN Reason: Pain Vancomycin Oral Soln [Vancocin] 250 mg PO QID #28 [facility] [place] <Humphrey Mo - Last Filed: 04/15/17 08:23> Date of Encounter: 04/14/17 Time of Encounter: 13:00 - Time Spent With Patient Total time spent is greater than 50% in coordination of care (as documented) at patient's floor/unit and/or counseling patient: - Constitutional Vitals: Temp Pulse Resp BP Pulse Ox 98.3 F 80 16 105/73 96 04/14/17 12:17 04/14/17 12:17 04/14/17 12:17 04/14/17 12:17 04/14/17 12:17 Results - Labs CBC & Chem 7: 04/14/17 05:08 04/14/17 05:08 Labs: Last Result Calcium 9.3 mg/dL (8.6-10.8) 04/14/17 05:08 Troponin I 0.01 ng/mL (0-0.03) 04/06/17 16:26 Stool Occult Blood Negative (Negative) 04/06/17 16:44 Entire Visit Hgb 11.4 g/dL (11.5-15.4) L 04/14/17 05:08 Hct 35.4 % (35.3-44.9) 04/14/17 05:08 PT 14.4 Seconds (9.4-12.1) H 04/07/17 04:22 Total Bilirubin 0.2 mg/dL (0.2-1.2) 04/14/17 05:08 AST 7 Units/L (5-34) 04/14/17 05:08 ALT 8 Units/L (0-55) 04/14/17 05:08 Lipase 52 Units/L (8-78) 04/06/17 16:26 Carcinoembryonic Ag 1.5 ng/mL (0-5.0) 04/08/17 12:05 CA 19-9 Antigen 9 U/mL (0-37) 04/08/17 12:05 - ABG ABG results: PT/INR, D-dimer PT 14.4 Seconds (9.4-12.1) H 04/07/17 04:22
[2017-04-14 12:19] VITALS: BP 105/73
--- NOTE | 2017-04-14 15:42 | Internal Med Progress Note ---
Date of Encounter: 04/14/17 Time of Encounter: 15:40 - Assessment and plan (1) UTI (urinary tract infection) Current Visit: Yes Status: Acute Assessment and plan: Urine culture showed Staphylococcus Lugdunesis sensitive to Cipro. Echocardiogram did not show any vegetation. Qualifiers: Urinary tract infection type: acute cystitis Hematuria presence: without hematuria Qualified Code(s): N30.00 - Acute cystitis without hematuria (2) Pancreatitis Current Visit: Yes Status: Acute Assessment and plan: CT abdomen and MRI showed acute pancreatitis with pseudocyst 1.6 cm. Treated conservatively and now has settled down. Qualifiers: Chronicity: acute Pancreatitis type: unspecified pancreatitis type Acute pancreatitis complication: unspecified Qualified Code(s): K85.90 - Acute pancreatitis without necrosis or infection, unspecified (3) COPD (chronic obstructive pulmonary disease) Current Visit: Yes Status: Chronic Assessment and plan: Not in acute exacerbation. Continue home medications and bronchodilators as needed Qualifiers: COPD type: emphysema Emphysema type: other Qualified Code(s): J43.8 - Other emphysema (4) Gastritis Current Visit: Yes Status: Acute Assessment and plan: Patient with acute abdominal pain with CT scan findings concerning for gastritis and melena. Continue PPI. Nothing by mouth. Upper GI endoscopy done Qualifiers: Gastritis type: other gastritis Chronicity: acute Gastritis bleeding: with bleeding Qualified Code(s): K29.01 - Acute gastritis with bleeding (5) Pancreatic cyst Current Visit: Yes Status: Acute Assessment and plan: Per CT scan. Recommended MRI for better delineation. Patient has normal lipase levels. MRI of the abdomen ordered. Pending clearance from radiology to do this as patient has had prior iliac stents. FNA done results pending (6) Diabetes mellitus Current Visit: Yes Status: Chronic Assessment and plan: Accu-Chek 4 times a day with sliding scale coverage daily. Qualifiers: Diabetes mellitus type: type 2 Diabetes mellitus complication status: with circulatory complication Diabetes mellitus complication detail: with peripheral angiopathy without gangrene Diabetes mellitus assisted insulin use : without termite renewal inspector use Qualified Code(s): E11.51 - Type 2 diabetes mellitus with diabetic peripheral angiopathy without gangrene (7) C. difficile colitis Current Visit: Yes Status: Acute Assessment and plan: Flgyl plus vancomycin. Diahrea improved, elctrolytes normal. - Subjective Interval history: Admitted for abdominal pain. MRI of abdomen showed evidence of acute pancreatitis as well as pseudocyst 1.6 cm. Gastroenterology is on the case. Urine culture showed gram-positive cocci. Sensitivities pending. Stool shows C. difficile. Flagyl added. Also has history of gastritis. Patient is on Xarelto. Follow CBC CMP amylase lipase.. 04/09 patient urine culture showed Staphylococcus lugdunesis 100,000 colonies. It is sensitive to Cipro. I will order an echocardiogram to rule out endocarditis infection. Patient abdomen seems better and therefore clear liquids will be started. Patient had DVT in July 2006 but she did not take full anticoagulation for a few months. She has been on anticoagulation for 5 months before Xarelto will be restarted. Apparently endoscopy showed only gastritis without any rebleed and she has been on IV Protonix with no drop in hemoglobin for more than 3 days. We can change her Protonix to by mouth and start her anticoagulation was Xarelto. I encouraged her to talk to her family doctor and see if she can be off anticoagulation in a month. Gastric biopsies pending. 04/11 tolerating full diet. Still has diarrhea. Had 7 loose bowel movement yesterday. Once frequency of diarrhea is under control with plan to discharge her. We are covering C. difficile with Flagyl. 04/12 diarrhea continues and has been having quite frequently. No abdominal pain. We tried Flagyl but it did not reduce the frequency therefore will go ahead and add vancomycin and repeat her CBC CMP magnesium and phosphate. 04/13 still has diarrhea. Will add vancomycin. Complaining of left-sided flank pain. Will check chest x-ray 04/14 Diarrhea improved, CXR negative, no pain. Discharge summary addendum done. - Constitutional Vitals: Temp Pulse Resp BP Pulse Ox 98.3 F 80 16 105/73 96 04/14/17 12:17 04/14/17 12:17 04/14/17 12:17 04/14/17 12:17 04/14/17 12:17 General appearance: Present: A&O X 3, no acute distress, answers questions appropriately - Head Head exam: Present: atraumatic, normocephalic - Eye Eye exam: Present: PERRL, conjuntiva pink, sclera anicteric Pupils: Present: PERRL - Neck Neck exam general surgery: Present: supple, trachea midline. Absent: lymphadenopathy - Respiratory Respiratory exam: Present: CTAB. Absent: accessory muscle use, rales, rhonchi, wheezes - Cardiovascular Cardiovascular exam: Present: RRR, +S1, +S2. Absent: diastolic murmur, gallop, rubs, systolic murmur - GI/Abdominal GI/Abdominal exam: Present: normal bowel sounds, soft, no peritoneal signs. Absent: distended, tenderness - Extremities Exam Extremities exam: Present: warm, radial pulses palpable and symmetrical. Absent : calf tenderness, cyanotic, pedal edema - Neurological Exam Neurological exam: Present: CN II-XII intact, oriented X3, no focal deficits. Absent: pronater drift, facial droop, speech deficit - Skin Skin exam: Present: dry, intact Internal Medicine: Result - Labs CBC & Chem 7: 04/14/17 05:08 04/14/17 05:08 Labs: Short CBC 04/14/17 Range/Units 05:08 WBC 9.9 (4.3-11.1) K/mcL Hgb 11.4 L (11.5-15.4) g/dL Hct 35.4 (35.3-44.9) % Plt Count 395 (140-400) K/mcL Neutrophils # 5.7 (1.6-8.9) K/mcL BMP 04/14/17 05:08 Sodium 131 L Potassium 4.5 Chloride 102 Carbon Dioxide 24 BUN 16 Creatinine 0.89 Glucose 335 H Calcium 9.3 Liver Function 04/14/17 Range/Units 05:08 Total Bilirubin 0.2 (0.2-1.2) mg/dL AST 7 (5-34) Units/L ALT 8 (0-55) Units/L Alkaline Phosphatase 76 (38-126) Units/L Albumin 2.4 L (3.5-5.0) g/dL - ABG Interpretation ABG results: PT/INR, D-dimer PT 14.4 Seconds (9.4-12.1) H 04/07/17 04:22 - Impressions Impressions Chest X-Ray 04/13/17 16:53 IMPRESSION: Negative chest. D/ / Alysha Copeland MD / Alysha Copeland MD Interpreting Provider: Alysha Copeland MD - VTE Documentation of Mechanical Device: Intermittent pneumatic compression device Consult Discharge Plan - Plan Referrals: Vicky White CNP [Primary Care Provider] - Prescriptions: Ciprofloxacin [Cipro] 500 mg PO BID #20 tablet metroNIDAZOLE [Flagyl] 500 mg PO TID #30 tablet Omeprazole [PriLOSEC] 20 mg PO BIDAC #60 capsule.
[2017-04-14] MEDS: *HR* Rivaroxaban 10 MG TABLET PO SCH (16:49)
== END 2017-04-14 18:40 | disposition home or self-care (01) | DRG 371 ==
LOC: EMEROO 15:19 → 3ANU 15:19
PROVIDERS: ADMIT Internal Medicine; ATTEND Internal Medicine
PROC: ENDOEBX (2017-04-07 12:30)
PROC: ENDOEUS (2017-04-09 18:20)